=== PATIENT | female | born 2000 | race Hispanic/Latino ===

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

== ENCOUNTER 2019-02-25 14:49 | Emergency (ER) | payer MEDICARE, OTHER ==
[~2019-02-25] VITALS: Ht 160 cm; Wt 55.3 kg
--- OUTSIDE RECORDS SUMMARY | 2019-02-25 14:52 | XMS REPORT ---
Author Author [facility] Address Unknown Phone Unavailable Care Team Providers Care Vehicle And Equipment Cleaner Name Role Phone Unavailable Unavailable Problems This patient has no known problems. Allergies, Adverse Reactions, Alerts This patient has no known allergies or adverse reactions. Medications This patient has no known medications. Encounters Start Date/Time End Date/Time Encounter Type Admission Type Attending Clinicians Care Facility Care Department Encounter ID 2018-03-13 00:00:00 2018-03-14 00:00:00 Outpatient [facility] [id number]
--- NOTE | 2019-02-25 15:39 | NUR ---
DR SALAZAR IN TRIAGE FOR PATIENT EVAL. DR SALAZAR EDUCATED PATIENT THAT NO OB SERVICES AVAILABLE AT [facility] AND PATIENT CAN EITHER BE TRANSFERRED TO [facility] OR SIGN OUT AGAINST MEDICAL ADVICE AND DRIVE TO [facility]. PATIENT VERBALIZED UNDERSTANDING OF RISKS OF LEAVING AGAINST MEDICAL ADVICE AND STATES THAT SHE WANTS TO DRIVE TO [facility]. NO SIGNS OF ACUTE DISTRESS NOTED.
== END 2019-02-25 15:43 | disposition left against medical advice (07) ==
LOC: ER 14:49
DX: O26.92 Pregnancy related conditions, unspecified, second trimester (principal); R10.2 Pelvic and perineal pain; K62.5 Hemorrhage of anus and rectum
CPT/HCPCS: 99282

== ENCOUNTER 2020-03-06 15:49 | Emergency (ER) | payer OTHER ==
[~2020-03-06] VITALS: Ht 160 cm; Wt 55.3 kg
--- OUTSIDE RECORDS SUMMARY | 2020-03-06 15:53 | XMS REPORT | Summary of Care ---
Author Author [facility] - Health Organization [facility] - Health Address Unknown Phone Unavailable Care Team Providers Care Product Development Engineer Name Role Phone Bell Rudolph CNM PCP Encounter Details Care Team Description Date Type Department Doctor Unassigned, [place] [address] [place] [address] 06/05/2019 Orders Only [facility] [address] [place] [address] Allergies Comments Active Allergy Reactions Severity Noted Date Told when a baby was allergic Penicillins Rash 12/04/2018 documented as of this encounter (statuses as of 06/05/2019) Medications End Date Status Medication Sig Dispensed Refills Start Date Active PNV 67-iron ps-folate Take 1 60 capsule 6 01/23 no.1-dha (VITAFOL ULTRA) capsule by 9 29 mg iron- 1 mg-200 mg mouth daily. CapIndications: High-risk in second trimester Active albuterol 90 Inhale 2 8.5 g 0 mcg/actuation inhaler Puffs every 6 9 (six) hours as needed for Wheezing or Shortness of Breath. Active doxylamine-pyridoxine, Take 2 60 tablet 1 vit B6, (DICLEGIS) 10-10 tablets by 9 mg per tabletIndications: mouth at Nausea bedtime. 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 Prob recurren t by hx. Initial outbreak in 2018 Rubella non-immune status, antepartum 01/01/2019 Overview: PP MMR Allergy to penicillin 12/05/2018 Asthma affecting , antepartum 12/04/2018 High-risk in third trimester 12/04/2018 Estimated Date of Delivery Comments Yes 07/06/2019 Based on Ultrasound documented as of this encounter (statuses as of 06/05/2019) Resolved Problems Problem Noted Date Resolved Date Need for Tdap vaccination 04/16/2019 05/20/2019 Cough 01/01/2019 02/04/2019 Gastroenteritis 12/22/2018 02/04/2019 Exposure to benzene 12/22/2018 04/16/2019 Primigravida in first trimester 12/05/20182018 Bacterial vaginosis 12/05/2018 03/04/2019 Overview: + BV noted on swab Patient asymptomatic Will defer treatment Nausea and vomiting in 12/04/201804/16 Need for prophylactic vaccination and inoculation aga inst influenza 12/04/2018 02/04/2019 documented as of this encounter (statuses as of 06/05/2019) Immunizations Name Administration Dates Next Due Influenza Virus Vaccine 12/04/2018 Quad .5 mL IM 6+ MO TDAP (ADACEL) VACCINE 05/03/2019 documented as of this encounter Social History Date Tobacco Use Types Packs/Day Years Used Never Smoker Smokeless Tobacco: Never Used Drinks/Week oz/Week Comments Alcohol Use stopped in September Yes Estimated Date of Delivery Comments Yes 07/06/2019 Based on Ultrasound Sex Assigned at Date Recorded Not on file Industry Job Start Date Occupation Not on file Not on file Not on file Travel End Travel History Travel Start No recent travel history available. documented as of this encounter Last Filed Vital Signs Not on filedocumented in this encounter Plan of Treatment Health Maintenance Due Date Last Done Comments MENINGOCOCCAL B VACCINES 11/25/2009 (1 of 2 - Risk Bexsero 2-dose series) HPV VACCINES (1 - Female 11/25/2014 3-dose series) INFLUENZA VACCINE (#1) 2019 12/04/2018 CHLAMYDIA SCREENING 12/05/2019 12/04/2018 DTaP,Tdap,and Td Vaccines 05/03/2029 05/03/2019 (2 - Td) MENINGOCOCCAL VACCINE Aged Out No longer eligib le based on patient's age to complete this topic PNEUMOCOCCAL 0-64 YEARS Aged Out No longer elig ible based COMBINED SERIES on patient's age to complete this topic documented as of this encounter Procedures Comments Procedure Name Priority Date/Time Associated Diag nosis NO SHOW OR MISSED Routine 06/05/2019 APPOINTMENT POLICY 4:05 PM CDT ACKNOWLEDGEMENT documented in this encounter Results Not on filedocumented in this encounter Insurance Type Payer Benefit Subscriber ID Effective Phone Address Plan / Dates Group Medicaid [employer] PLAN - SUPERIOR-( xxxxxxxxx 2018-P [place] , [place] [id number] [facility]) PLAN documented as of this encounter
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
--- OUTSIDE RECORDS SUMMARY | 2020-03-06 15:53 | XMS REPORT | Summary of Care ---
Author Author [facility] - [facility] Organization [facility] - Health Address Unknown Phone Unavailable Care Team Providers Care Supervisor [employer] Name Role Phone Bell RudolphM PCP Reason for Visit * Reason Comments Care Encounter Details Care Team Description Date Type Department Bell Rudolph CNM [address] [place] [address] High-risk in third trimester ( Primary Dx); Herpes simplex vulvovaginitis 05/20/2019 Routine [facility] Visit [facility] [address] [place] [address] Allergies Comments Active Allergy Reactions Severity Noted Date Told when a baby was allergic Penicillins Rash 12/04/2018 documented as of this encounter (statuses as of 05/22/2019) Medications End Date Status Medication Sig Dispensed [...] as of this encounter (statuses as of 05/22/2019) Active Problems Problem Noted Date Nausea 05/03/2019 [...] as of this encounter (statuses as of 05/22/2019) Resolved Problems Problem Noted Date Resolved Date [...] as of this encounter (statuses as of 05/22/2019) Immunizations Name Administration Dates Next Due Influenza [...] Signs Reading Time Taken Comments Vital Sign 106/63 05/20/2019 5:16 PM CDT Blood Pressure 94 05/20/2019 5:16 PM CDT Pulse 36.4 C (97.6 F) 05/20/2019 5:16 PM CDT Temperature 20 05/20/2019 5:16 PM CDT Respiratory Rate - - Oxygen Saturation - - Inhaled Oxygen Concentration 68.5 kg (151 lb) 05/20/2019 5:16 PM CDT Weight 157.5 cm (5' 2") 05/20/2019 5:16 PM CDT Height 27.62 05/20/2019 5:16 PM CDT Body Mass Index documented in this encounter Progress Notes * Bell Rudolph CNM - 05/20/2019 5:15 PM CDT Chief complaint: Chief Complaint Patient presents with Care CC: Follow Up Visit Yulisa Garcia is a 18 year old, , /White female. Patient's last menstrual period was 10/07/2018. She is 33w4d with an intrauterine pregna ncy. Her estimated [...] file Gets together: Not on file Attends restoration service: Not on file Active member of [...] Labs are pending. and Routine Visit on 05/03/2019 Component Date Value POCT PH U 05/03/2019 7 POCT U LEUK EST 05/03/2019 2 POCT U NIT 05/03/2019 n POCT U PROT 05/03/2019 tr POCT U GLU 05/03/2019 n POCT U KETONE 05/03/2019 n POCT U BLD 05/03/2019 1 Radiology No new radiology. Allergies Yulisa is allergic to pcn [penicillins]. Medications Yulisa has a current medication list which includes the following prescriptio n(s): doxylamine-pyridoxine (vit b6), albuterol, and pnv 67-iron ps-folate no.1- dha. Review of Systems BP 106/63 | Pulse 94 | Temp 36.4 C (97.6 F) (Oral) | Resp 20 | Ht 5' 2" (1.575 m) | Wt 151 lb (68.5 kg) | LMP 10/07/2018 | BMI 27.62 kg/m Pregravid BMI: 21.8 Physical Exam Assessment/Plan High-risk in third trimester (primary encounter diagnosis) Comment: Plan: HIV 1/2 AG-AB WITH REFLEX, [facility] ONLY - SYPHILIS IGG/IGM, CBC WITH DIFF, CBC WITH DIFFERENTIAL, HIV 1/2 AG-AB WITH REFLEX, [facility] ONLY - SYPHILIS IGG/IGM Herpes simplex vulvovaginitis Comment: No new outbreak Plan: start suppression next visit Return to clinic in 2 weeks. at 33w4d This visit did not involve counseling and coordination that comprised more than 50% of the visit time. documented in this encounter Plan of Treatment Care Team Description Date Type Specialty Bell Rudolph, CNM [address] [id number] [phone] 06/05/2019 Routine [facility] Visit Health Maintenance Due Date Last Done Comments [...] Procedure Name Priority Date/Time Associated Diag nosis [facility] ONLY - SYPHILIS Routine 05/20/2019 High-risk in IGG/IGM 6:33 PM CDT third trimester HIV 1/2 AG-AB WITH REFLEX Routine 05/20/2019 High -risk in 6:33 PM CDT third trimester CBC WITH DIFFERENTIAL Routine 05/20/2019 High-ris k in 6:33 PM CDT third trimester CBC WITH DIFF Routine 05/20/2019 High-risk pregn joseph in 6:33 PM CDT third trimester documented in this encounter Results * CBC WITH DIFFERENTIAL (05/20/2019 6:33 PM CDT) WBC 9.18 4.30 - 11.10 [facility] 10*3/L [facility] RBC 3.97 3.93 - 5.25 10*6/L [facility] HGB 12.0 11.6 - 15.0 g/dL [facility] HCT 36.3 35.7 - 45.2 % [facility] MCV 91.4 80.6 - 95.5 fL [facility] MCH 30.2 25.9 - 32.8 pg [facility] MCHC 33.1 31.6 - 35.1 g/dL [facility] RDW-SD 40.7 39.0 - 49.9 fL [facility] RDW-CV 12.2 12.0 - 15.5 % [facility] PLT 249 166 - 358 10*3/L [facility] MPV 10.4 9.5 - 12.9 fL [facility] IPF % 5.2Comment: Platelet count 1.3 - 7.7 % U[facility] B [facility] measured by fluorescence SERVICES method. NRBC/100 WBC 0.0 0.0 - 10.0 /100 WBCs [facility] NRBC x10^3 <0.01 10*3/L [facility] GRAN MAT (NEUT) 71.8 % [facility] % SERVICES IMM GRAN % 1.10 % [facility] LYMPH % 17.5 % [facility] MONO % 7.4 % [facility] EOS % 2.0 % [facility] BASO % 0.2 % [facility] GRAN MAT 6.59 1.88 - 7.09 10*3/uL [facility] x10^3(ANC) SERVICES IMM GRAN x10^3 0.10 (H) 0.00 - 0.06 10*3/uL [facility] LYMPH x10^3 1.61 1.32 - 3.29 10*3/uL [facility] MONO x10^3 0.68 0.33 - 0.92 10*3/uL [facility] EOS x10^3 0.18 0.03 - 0.39 10*3/uL [facility] BASO x10^3 <0.03 0.01 - 0.07 10*3/uL [facility] Specimen Blood - ARM, LEFT Performing Organization Address City/State/Zipcode Ph one Number [facility] CLIA: [id number], [address] [place] [address] [facility] * [facility] ONLY - SYPHILIS IGG/IGM (05/20/2019 6:33 PM CDT) Syphilis Non-reactive Non-reactive [facility] IgG/IgM SERVICES Specimen Blood - ARM, LEFT Narrative Performed At Non-reactive - No serologic evidence of T. pallidum i nfection. Cannot exclude [facility] incubating or early syphilis. Submit a second specimen in 2-4 weeks if syphilis SERVICES is clinically suspected. Equivocal - Further testing to follow. Reactive - Further testing to follow. Performing Organization Address City/State/[facility] Ph one Number [facility] CLIA: [id number], [address] [place] [address] [facility] * HIV 1/2 AG-AB WITH REFLEX (05/20/2019 6:33 PM CDT) HIV 1/2 Ag-Ab Negative Negative [facility] with Reflex SERVICES HIV 0.07 [facility] Semi-quantitati SERVICES ve Specimen Blood - ARM, LEFT Narrative Performed At Non-reactive for HIV-1 antigen and HIV-1/HIV-2 antibo dies.No laboratory [facility] evidence of HIV infection.Repeat in 2-4 weeks if acute HIV infection is SERVICES suspected. Performing Organization Address [facility] Ph one Number [facility] CLIA: [id number], [address] [place] [id number] [facility] documented in this encounter Visit Diagnoses Diagnosis High-risk in third trimester - Primary Herpes simplex vulvovaginitis documented in this encounter Insurance Type Payer Benefit Subscriber ID Effective Phone Address Plan / Dates Group Medicaid [employer] - SUPERIOR-( xxxxxxxxx 2018-P [place] [employer] [place] , [place] [id number] [facility]) PLAN documented as of this encounter
--- OUTSIDE RECORDS SUMMARY | 2020-03-06 15:53 | XMS REPORT | Continuity of Care Document ---
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 Role Phone [employer] Unavailable Un available Problems Problem Status Onset Date Classification Date Reported Comments Source PAIN WITH URINATION Active 07/13/2019 [facility] Nausea Active 05/03/2019 06/12/2019 [facility] Rubella non-immune status, antepartum Active 01/01/2019 06/12/2019 [facility] Allergy to penicillin Active 12/05/2018 06/12/2019 [facility] Asthma affecting , antepartum Active 12/04/2018 06/12/2019 [facility] Patient currently (finding) Resolved 09/29/2018 Problem 07/18/2019 [facility] High-risk in third trimester Active 06/12/2019 [facility] Herpes simplex vulvovaginitis Active 06/12/2019 [facility] Need for Tdap vaccination Acti ve 05/03/2019 [facility] Asthma (disorder) Resolved Problem 07/18/2019 [facility] Herpes simplex (disorder) Acti ve Problem Automatically added by Discern Expert ernesto morrison result @EVENTCDDISP:1 of @RESULT:1 on @EVENTENDDTTM:1. [facility] Herpes simplex type 2 infection (disorder) Resolved Problem 07/18/2019 [facility] Medications Medication Details Route Status Patient Instructions Ordering Provider Order Date Source Docusate Sodium 100 MG Oral Capsule 100 mg = 1 cap, PO, BID, PRN Constipation, # 60 cap, 1 Refill(s), Pharmacy: [facility]/pharmacy #[id number] Active 07/16/2019 [facility] ibuprofen 600 mg oral tablet 6 00 mg = 1 tab, PO, Q6H, # 30 tab, 0 Refill(s), Pharmacy: [facility][id number] Active 07/16/2019 [facility] CitraNatal [place] oral capsule 1 cap, PO, Daily, # 60 cap, 0 Refill(s), Pharmacy: [facility]/pharmacy #[id number] Active 07/16/2019 [facility] Multivitamins oral tablet 1 tab, Route: PO, Drug Form: TAB, Dosing Weight 71.818, kg, Daily, Start date: 07/15/19 9:00:00 CDT, Duration: 30 day, Stop date: 08/13/19 9:00:00 STORE 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 No Longer Active 07/14/2019 [facility] Oxytocin 30 unit, 500 mL, Rate : 42 ml/hr, Infuse over: 11.9 hr, Dosing Weight 71.818, kg, Route: IV, Total Volume: 500 mL, Start date: 07/14/19 10:23:00 CDT, Duration: 2 day, Stop date: 07/16/19 10:22:00 CDT, Replace Every: 11.9 hr, 0 No Longer Active 07/14/2019 [facility] Lactated Ringers IV 1,000 mL 1 ,000 mL, Rate: 100 ml/hr, Infuse over: 10 hr, Route: IV, Dosing Weight 71.818 kg, Total Volume: 1,000, Start date: 07/14/19 10:23:00 CDT, Duration: 30 day, Stop date: 08/13/19 10:22:00 STORE ADMINISTRATOR, 1.8, m2, 0 No Longer Active 07/14/2019 [facility] Ondansetron Notes: (Same as: Fady carracso) MEDICATION WASTE Product Size: 4 mg Product Wasted: ___ mg No Longer Active 07/14/2019 [facility] Docusate Notes: (Same as: Cola ce) (Do Not Crush) No Longer Active 07/14/2019 [facility] Bisacodyl Notes: (Same As: Dul colax, Correctol) (Do Not Crush) "Do Not Crush" No Longer Active 07/14/2019 [facility] lanolin topical 1 appl, Route: TOP, PRN, Drug form: OINT, PRN Other -See Comment, Start date: 07/14/19 10:23:00 CDT, Duration: 30 day, Stop date: 08/13/19 9:22:00 STORE ADMINISTRATOR, 0 No Longer Active 07/14/2019 [facility] zolpidem Notes: (Same As: Ambi en) No Longer Active 07/14/2019 [facility] Dermoplast 20% topical spray N otes: (Same As: Dermoplast) WASTE: Aerosol - Return to Pharmacy FOR EXTERNAL USE ONLY No Longer Active 07/14/2019 [facility] Methylergonovine Notes: (Same as:Methergine) No Longer Active 07/14/2019 [facility] Famotidine Notes: (Same as: Pe pcid) Can be dilute in 5- 10cc NS IVP: Slow IV push over at least 2 minutes. No Longer Active 07/14/2019 [facility] Misoprostol Notes: (Same as:Cy totec) Take with food No Longer Active 07/14/2019 [facility] Methylergonovine Notes: (Same as:Methergine) No Longer Active 07/14/2019 [facility] Citric Acid / sodium citrate N otes: (Same As: Bicitra, Cytra-2) Sodium citrate-citric acid (500-334 mg/5 mL): 1 mL contains sodium 1 mEq/mL and bicarbonate 1 mEq/mL No Longer Active 07/14/2019 [facility] Carboprost Notes: (Same As: He mabate) No Longer Active 07/14/2019 [facility] Tranexamic Acid Notes: (Same A s: Cyklokapron) No Longer Active 07/14/2019 [facility] Oxytocin 30 unit, 500 mL, Rate : Titrate, Dosing Weight 71.818, kg, Route: IV, Total Volume: 500 mL, Start date: 07/13/19 18:36:00 CDT, Duration: 2 day, Stop date: 07/15/19 18:35:00 CDT, Replace Every: 24 hr, 0 No Longer Active 07/13/2019 [facility] Lidocaine Hydrochloride 10 MG/ML Injectable Solution Notes: Preservative free. (Same as: Xylocaine MPF) No Longer Active 07/13/2019 [facility] Calcium Chloride 0.0014 MEQ/ML / Potassi um Chloride 0.004 MEQ/ML / Sodium Chloride 0.103 MEQ/ML / Sodium Lactate 0.028 MEQ/ML Injectable Solution 1,000 mL, 1,000 ml/hr, Infuse Over: 1 hr , Route: IV, 1,000, Drug form: INJ, ONCE, Dosing Weight 71.818 kg, Start date: 07/13/19 18:34:00 CDT, Stop date: 07/13/19 18:34:00 CDT, Bolus for regional anesthesia per unit routine, 0 Inactive 07/13/2019 [facility] Lactated Ringers IV 1,000 mL 1 ,000 mL, Rate: 125 ml/hr, Infuse over: 8 hr, Route: IV, Dosing Weight 71.818 kg, Total Volume: 1,000, Start date: 07/13/19 18:34:00 CDT, Duration: 30 day, Stop date: 08/12/19 18:33:00 STORE ADMINISTRATOR, 1.8, m2, 0 No Longer Active 07/13/2019 [facility] Oxytocin 30 unit, 500 mL, Rate : 42 ml/hr, Infuse over: 11.9 hr, Dosing Weight 71.818, kg, Route: IV, Total Volume: 500 mL, Start date: 07/13/19 18:34:00 CDT, Duration: 2 day, Stop date: 07/15/19 18:33:00 CDT, Replace Every: 11.9 hr, 0 No Longer Active 07/13/2019 [facility] Butorphanol Notes: (Same As: S tadol) MEDICATION WASTE Product Size: 2 mg Product Wasted: ___ mg No Longer Active 07/13/2019 [facility] Ibuprofen Notes: (Same as: Mot rin) "Do Not Crush" Take with food. No Longer Active 07/13/2019 [facility] Acetaminophen 325 MG / Hydrocodone Earl trate 5 MG Oral Tablet Notes: (Same as: [place] 325/5) Do not ex ceed 4gm/day of acetaminophen. No Longer Active 07/13/2019 [facility] Ondansetron Notes: (Same as: Fady carrasco) MEDICATION WASTE Product Size: 4 mg Product Wasted: ___ mg No Longer Active 07/13/2019 [facility] Terbutaline Notes: DO NOT US E IN BOTTOM POLISHER AREA (Same As: Brethine) No Longer Active 07/13/2019 [facility] acyclovir 400 mg tablet Take 1 tablet by mouth 2 (two) times daily. For duration of Oral Active 06/05/2019 [facility] doxylamine-pyridoxine, vit B6, (DICLEGIS ) 10-10 mg per tablet Take 2 tablets by mouth at bedtime. Oral Active 05/03/2019 [facility] albuterol 90 mcg/actuation inhaler Inhale 2 Puffs every 6 (six) hours as needed for Wheezing or Shortness of Breath. Inhalation Active 04/16/2019 [facility] PNV 67-iron ps-folate no.1-dha (VITAFOL ULTRA) 29 mg iron- 1 mg-200 mg Cap Take 1 capsule by mouth daily. Oral Active 02/04/2019 [facility] Allergies, Adverse Reactions, Alerts Substance Category Reaction Severity Reaction type Status Date Reported Comments Source Penicillins Rash Propensity to adverse reacti ons Active 12/04/2018 [facility] penicillins Assertion Drug allergy Active [facility] Immunizations Immunization Date Given Site Status Last Updated Comments Source influenza virus vaccine, inactivated 07/16/2019 Right deltoid completed Pram[facility] TDAP (ADACEL) VACCINE 05/03/20 19 completed C roger [facility] Health Influenza Virus Vaccine Quad .5 mL IM 6+ MO 12/04/2018 completed Viancos [facility] Results Order Name Results Value Reference Range Date Interpretation Comments Source HEMATOLOGY Hgb 10.5 12.0 - 16.0 07/15/2019 [facility] HEMATOLOGY Hct 30.4 36.0 - 48.0 07/15/2019 [facility] DRUG SCREEN U Amph Scr Nega tive *NA* (07/13/19 7:49 PM) Negative 07/14/2019 [facility] DRUG SCREEN U Kaycee Scr Nega tive *NA* (07/13/19 7:49 PM) Negative 07/14/2019 [facility] DRUG SCREEN U Benzodiaz Scr Nega tive *NA* (07/13/19 7:49 PM) Negative 07/14/2019 [facility] DRUG SCREEN U Cocaine Scr Nega tive *NA* (07/13/19 7:49 PM) Negative 07/14/2019 [facility] DRUG SCREEN U Cannab Scr Nega tive *NA* (07/13/19 7:49 PM) Negative 07/14/2019 [facility] DRUG SCREEN U Opiate Scr Nega tive *NA* (07/13/19 7:49 PM) Negative 07/14/2019 [facility] DRUG SCREEN U Phencyclidine Scr Nega tive *NA* (07/13/19 7:49 PM) Negative 07/14/2019 [facility] DRUG SCREEN UDS Note See Note (07/13/19 7:49 PM) 07/14/2019 [facility] DRUG SCREEN U Methadone Scr Nega tive *NA* (07/13/19 7:49 PM) Negative 07/14/2019 [facility] DRUG SCREEN U Propoxyph Scr Nega tive *NA* (07/13/19 7:49 PM) Negative 07/14/2019 [facility] URINE AND STOOL UA Color Light Yellow *NA* (07/13/19 7:49 PM) Yellow 07/14/2019 [facility] URINE AND STOOL UA Turbidity Clear (07/13/19 7:49 PM) Clear 07/14/2019 [facility] URINE AND STOOL UA Spec Grav 1.014 <=1.030 07/14/2019 [facility] URINE AND STOOL UA pH 6.0 5.0 - 8.0 07/14/2019 [facility] URINE AND STOOL UA Protein Negative mg/dL Negative mg/dL 07/14/2019 [facility] URINE AND STOOL UA Glucose Negative mg/dL Negative mg/dL 07/14/2019 [facility] URINE AND STOOL UA Ketones 20 mg/dL Negative mg/dL 07/14/2019 [facility] URINE AND STOOL UA Bili Negative *NA* (07/13/19 7:49 PM) Negative 07/14/2019 [facility] URINE AND STOOL UA Blood Large *ABN* (07/13/19 7:49 PM) Negative 07/14/2019 [facility] URINE AND STOOL UA Urobilinogen <1.0 0.1 - 1.0 07/14/2019 [facility] URINE AND STOOL UA Nitrite Negative (07/13/19 7:49 PM) Negative 07/14/2019 [facility] URINE AND STOOL UA Leuk Est Small *ABN* (07/13/19 7:49 PM) Negative 07/14/2019 [facility] URINE AND STOOL UA Sq Epi Few /LPF Few /LPF 07/14/2019 [facility] URINE AND STOOL UA WBC 10 0 - 5 07/14/2019 [facility] URINE AND STOOL UA RBC 6 0 - 2 07/14/2019 [facility] URINE AND STOOL UA Bacteria Occasional /HPF None Seen /HPF 07/14/2019 [facility] URINE AND STOOL UA Mucus Few /LPF None Seen /LPF 07/14/2019 [facility] BLOOD BANK RESULTS ABO/Rh O POS 07/14/2019 [facility] BLOOD BANK RESULTS Antibody Scrn Negative (07/13/19 7:44 PM) 07/14/2019 [facility] HEMATOLOGY WBC 11.3 3.7 - 10.4 07/14/2019 [facility] HEMATOLOGY RBC 3.92 4.20 - 5.40 07/14/2019 [facility] HEMATOLOGY Hgb 11.7 12.0 - 16.0 07/14/2019 [facility] HEMATOLOGY Hct 34.8 36.0 - 48.0 07/14/2019 [facility] HEMATOLOGY MCV 88.6 80.0 - 98.0 07/14/2019 [facility] HEMATOLOGY MCH 29.9 27.0 - 31.0 07/14/2019 [facility] HEMATOLOGY MCHC 33.7 32.0 - 36.0 07/14/2019 [facility] HEMATOLOGY RDW 13.3 11.5 - 14.5 07/14/2019 [facility] HEMATOLOGY Platelet 245 133 - 450 07/14/2019 [facility] HEMATOLOGY MPV 8.1 7.4 - 10.4 07/14/2019 [facility] HEMATOLOGY Segs 75.9 45.0 - 75.0 07/14/2019 [facility] HEMATOLOGY Lymphocytes 16.2 20.0 - 40.0 07/14/2019 [facility] HEMATOLOGY Monocytes 6.6 2.0 - 12.0 07/14/2019 [facility] HEMATOLOGY Eosinophils 1.1 0.0 - 4.0 07/14/2019 [facility] HEMATOLOGY Basophils 0.2 0.0 - 1.0 07/14/2019 [facility] HEMATOLOGY Neutrophils # 8.6 1.5 - 8.1 07/14/2019 [facility] HEMATOLOGY Lymphocytes # 1.8 1.0 - 5.5 07/14/2019 [facility] HEMATOLOGY Monocytes # 0.7 0.0 - 0.8 07/14/2019 [facility] HEMATOLOGY Eosinophils # 0.1 0.0 - 0.5 07/14/2019 [facility] IMMUNOLOGY Treponemal Ab Non-R eactive *NA* (07/13/19 7:44 PM) Non 07/14/2019 [facility] IMMUNOLOGY Hep Bs Ag Negat rex *NA* (07/13/19 7:44 PM) Negative 07/14/2019 [facility] IMMUNOLOGY HIV. Negat rex *NA* (07/13/19 7:44 PM) Negative 07/14/2019 [facility] GROUP B STREPTOCOCCUS BY PCR < td ID="[id number]">Group B Streptococcus by PCR</td><td>Negative</td><td>Negative</td><td>[facility]</td><td ID="[id number]"/> Negative Negative 06/07/2019 [facility] GROUP B STREPTOCOCCUS BY PCR Lab Int erpretation Normal 06/07/2019 [facility] Healt GC & CHLAMYDIA AMPLIFIED ASSAY Lab I nterpretation Normal 06/06/2019 [facility] GALV ONLY - SYPHILIS IGG/IGM < td ID="[id number]">Syphilis IgG/IgM</td><td>Non-reactive</td><td>Non-reactive</td><td>[facility]</td><td ID="[id number]"/> Non-reactive Non 05/21/2019 [facility] GALV ONLY - SYPHILIS IGG/IGM < p>Non-reactive - No serologic evidence of T. pallidum infection. Cannot exclude incubating or early syphilis. Submit a second specimen in 2-4 weeks if syphilis is clinically suspected.</p><p>Equivocal - Further testing to follow.</p><p>Reactive - Further testing to follow. </p> Non-reactive - No serologic evidence of T. pallidum infection. Cannot exclude incubating or early syphilis. Submit a second specimen in 2-4 weeks if syphilis is clinically suspected.Equivocal - Further testing to follow.Reactive - Further testing to follow. 05/21/2019 [facility] GALV ONLY - SYPHILIS IGG/IGM Lab Int erpretation Normal 05/21/2019 [facility] Healt h HIV 1/2 AG-AB WITH REFLEX <td ID="[id number]">HIV 1/2 Ag-Ab with Reflex</td><td>Negative</td><td>Negative</td><td>[facility]</td><td ID="[id number]"/> Negative Negative 05/21/2019 [facility] HIV 1/2 AG-AB WITH REFLEX <td ID="[id number]">HIV Semi- quantitative</td><td>0.07</td><td/><td>[facility]</td><td ID="[id number]"/> 0.07 05/21/2019 [facility] HIV 1/2 AG-AB WITH REFLEX <p>N on-reactive for HIV-1 antigen and HIV-1/HIV-2 antibodies.No laboratory evidence of HIV infection.Repeat in 2-4 weeks if acute HIV infection is suspected.</p> Non- reactive for HIV-1 antigen and HIV-1/HIV-2 antibodies.No laboratory evidence of HIV infection.Repeat in 2-4 weeks if acute HIV infection is suspected. 05/21/2019 [facility] CBC WITH DIFFERENTIAL <td ID="[id number]">WBC</td><td>9.18</td><td>4.30 - 11.10 10*3/L</td><td>[facility]</td><td ID="[id number]"/> 9.18 4.30 - 11.17157 05/21/2019 [facility] CBC WITH DIFFERENTIAL <td ID="[id number]">RBC</td><td>3.97</td><td>3.93 - 5.25 10*6/L</td>< td>[facility]</td><td ID="[id number]"/> 3.97 3.93 - 5.15636 05/21/2019 [facility] CBC WITH DIFFERENTIAL <td ID="[id number]">HGB</td><td>12.0</td><td>11.6 - 15.0 g/dL</td><td>[facility]</td><td ID="[id number]"/> 12.0 11.6 - 15 05/21/2019 [facility] CBC WITH DIFFERENTIAL <td ID="[id number]">HCT</td><td>36.3</td><td>35.7 - 45.2 %</td><td>[facility]</td><td ID="[id number]"/> 36.3 35.7 - 45.2 05/21/2019 [facility] CBC WITH DIFFERENTIAL <td ID="[id number]">MCV</td><td>91.4</td><td>80.6 - 95.5 fL</td><td>[facility]</td><td ID="[id number]"/> 91.4 80.6 - 95.5 05/21/2019 [facility] CBC WITH DIFFERENTIAL <td ID="[id number]">MCH</td><td>30.2</td><td>25.9 - 32.8 pg</td><td>[facility]</td><td ID="[id number]"/> 30.2 25.9 - 32.8 05/21/2019 [facility] CBC WITH DIFFERENTIAL <td ID="[id number]">MCHC</td><td>33.1</td><td>31.6 - 35.1 g/dL</td><td>[facility]</td><td ID="[id number]"/> 33.1 31.6 - 35.1 05/21/2019 [facility] CBC WITH DIFFERENTIAL <td ID="[id number]">RDW-SD</td><td>40.7</td><td>39.0 - 49.9 fL</td><td>[facility]</td><td ID="[id number]"/> 40.7 39 - 49.9 05/21/2019 [facility] CBC WITH DIFFERENTIAL <td ID="[id number]">RDW-CV</td><td>12.2</td><td>12.0 - 15.5 %</td><td>[facility]</td><td ID="[id number]"/> 12.2 12 - 15.5 05/21/2019 [facility] CBC WITH DIFFERENTIAL <td ID="[id number]">PLT</td><td>249</td><td>166 - 358 10*3/L</td><td >[facility]</td><td ID="[id number]"/> 249 166 - [id number] 05/21/2019 [facility] CBC WITH DIFFERENTIAL <td ID="[id number]">MPV</td><td>10.4</td><td>9.5 - 12.9 fL</td><td>[facility]</td><td ID="[id number]"/> 10.4 9.5 - 12.9 05/21/2019 [facility] CBC WITH DIFFERENTIAL IPF % 5. 2 1.3 - 7.7 05/21/2019 Platelet count measured by fluorescence method. [facility] CBC WITH DIFFERENTIAL NRBC/100 WBC 0.0 0.0 - 10.0100 05/21/2019 [facility] CBC WITH DIFFERENTIAL NRBC x10^3 <0.01 10*3/L 05/21/2019 [facility] CBC WITH DIFFERENTIAL <td ID="[id number]">GRAN MAT (NEUT) %</td><td>71.8</td><td>%</td><td>[facility]</td><td ID="[id number]"/> 71.8 05/21/2019 [facility] CBC WITH DIFFERENTIAL IMM GRAN % 1.10 05/21/2019 [facility] CBC WITH DIFFERENTIAL <td ID="[id number]">LYMPH %</td><td>17.5</td><td>%</td><td>[facility]</td><td ID="[id number]"/> 17.5 05/21/2019 [facility] CBC WITH DIFFERENTIAL <td ID="[id number]">MONO %</td><td>7.4</td><td>%</td><td>[facility]</td><td ID="[id number]"/> 7.4 05/21/2019 [facility] CBC WITH DIFFERENTIAL <td ID="[id number]">EOS %</td><td>2.0</td><td>%</td><td>[facility]</td><td ID="[id number]"/> 2.0 05/21/2019 [facility] CBC WITH DIFFERENTIAL <td ID="[id number]">BASO %</td><td>0.2</td><td>%</td><td>[facility]</td><td ID="[id number]"/> 0.2 05/21/2019 [facility] CBC WITH DIFFERENTIAL GRAN MAT x10^3 (ANC) 6.59 1.88 - 7.09 05/21/2019 [facility] Healt h CBC WITH DIFFERENTIAL IMM GRAN x10^3 0.10 0 - 0.06 05/21/2019 [facility] CBC WITH DIFFERENTIAL <td ID="[id number]">LYMPH x10^3</td><td>1.61</td><td>1.32 - 3.29 10*3/uL</td><td>[facility]</td><td ID="[id number]"/> 1.61 1.32 - 3.29 05/21/2019 [facility] CBC WITH DIFFERENTIAL <td ID="[id number]">MONO x10^3</td><td>0.68</td><td>0.33 - 0.92 10*3/uL</td><td>[facility]</td><td ID="[id number]"/> 0.68 0.33 - 0.92 05/21/2019 [facility] CBC WITH DIFFERENTIAL <td ID="[id number]">EOS x10^3</td><td>0.18</td><td>0.03 - 0.39 10*3/uL</td><td>[facility]</td><td ID="[id number]"/> 0.18 0.03 - 0.39 05/21/2019 [facility] CBC WITH DIFFERENTIAL <td ID="[id number]">BASO x10^3</td><td><0.03</td><td>0.01 - 0.07 10*3/uL</td><td>[facility]</td><td ID="[id number]"/> <0.03 0.01 - 0.07 05/21/2019 [facility] CBC WITH DIFFERENTIAL Lab Interpreta tion Abnormal 05/21/2019 [facility] Health POCT URINALYSIS W/O SPECIFIC GRAVITY POCT PH U 7 5 - 8 05/03/2019 [facility] Healt h POCT URINALYSIS W/O SPECIFIC GRAVITY POCT U LEUK EST 2 Negative 05/03/2019 [facility] POCT URINALYSIS W/O SPECIFIC GRAVITY POCT U NIT n Negative 05/03/2019 [facility] POCT URINALYSIS W/O SPECIFIC GRAVITY POCT U PROT tr Negative 05/03/2019 [facility] POCT URINALYSIS W/O SPECIFIC GRAVITY POCT U GLU n Negative 05/03/2019 [facility] POCT URINALYSIS W/O SPECIFIC GRAVITY POCT U KETONE n Negative 05/03/2019 [facility] POCT URINALYSIS W/O SPECIFIC GRAVITY POCT U BLD 1 Negative 05/03/2019 [facility] Pathology Reports No Data Provided for This Section Diagnostic Reports No Data Provided for This Section Consultation Notes No Data Provided for This Section Discharge Summaries No Data Provided for This Section History and Physicals No Data Provided for This Section Vital Signs Vital Sign Value Date Comments Source Temperature Oral (F) 97.7 F 07/16/2019 [facility] Heart Rate 71 07/16/2019 [facility] Respitory Rate 18 07/16/2019 [facility] Systolic (mm Hg) 103 07/16/2019 [facility] Diastolic (mm Hg) 62 07/16/2019 [facility] Temperature Oral (F) 97.9 F 07/16/2019 [facility] Heart Rate 80 07/16/2019 [facility] Respitory Rate 18 07/16/2019 [facility] Systolic (mm Hg) 111 07/16/2019 [facility] Diastolic (mm Hg) 69 07/16/2019 [facility] Temperature Oral (F) 98.4 F 07/15/2019 [facility] Heart Rate 80 07/15/2019 [facility] Respitory Rate 18 07/15/2019 [facility] Systolic (mm Hg) 107 07/15/2019 [facility] Diastolic (mm Hg) 68 07/15/2019 [facility] Height 157.48 cm 07/14/2019 [facility] Weight 71.818 07/14/2019 [facility] BMI Calculated 28.96 07/14/2019 [facility] Height 157.48 cm 07/13/2019 [facility] BMI Calculated 28.96 07/13/2019 [facility] Weight 71.818 07/13/2019 [facility] Systolic (mm Hg) 119 06/05/2019 [facility] Diastolic (mm Hg) 78 06/05/2019 [facility] Heart Rate 88 06/05/2019 [facility] Temperature Oral (F) 36.83 Felipa 06/05/2019 [facility] Respitory Rate 20 06/05/2019 [facility] Height 157.5 cm 06/05/2019 [facility] Weight 70.58 06/05/2019 [facility] Systolic (mm Hg) 106 05/20/2019 [facility] Diastolic (mm Hg) 63 05/20/2019 [facility] Heart Rate 94 05/20/2019 [facility] Temperature Oral (F) 36.44 Felipa 05/20/2019 [facility] Respitory Rate 20 05/20/2019 [facility] Height 157.5 cm 05/20/2019 [facility] Weight 68.493 05/20/2019 [facility] Systolic (mm Hg) 97 05/03/2019 [facility] Diastolic (mm Hg) 62 05/03/2019 [facility] Heart Rate 86 05/03/2019 [facility] Temperature Oral (F) 36.06 Felipa 05/03/2019 [facility] Respitory Rate 20 05/03/2019 [facility] Height 157.5 cm 05/03/2019 [facility] Weight 67.586 05/03/2019 [facility] Encounters Location Location Details Encounter Type Encounter Number Reason For Visit Attending Provider ADM Date DC Date Status Source [facility] Routine Visit [id number] Bell YING 05/03/2019 05/03/2019 [facility] Routine Visit [id number] Bell YING 05/20/2019 05/20/2019 [facility] Orders Only [id number] No Doctor Unassigned 06/05/2019 [facility] Routine Visit [id number] Bell Rudolph CNM 06/05/2019 06/05/2019 [facility] Inpatient [id number] Bridgett Peterson 07/13/2019 07/16/2019 [facility] Procedures Procedure Code Date Perfomer Comments Source GC & CHLAMYDIA AMPLIFIED ASSAY [id number] 06/06/2019 [facility] GROUP B STREPTOCOCCUS BY PCR 8 7653 06/06/2019 [facility] NO SHOW OR MISSED APPOINTMENT POLICY ACKNOWLEDGEMENT 50901 06/06/2019 Doctor Unassigned [facility] CBC WITH DIFF 08996 05/21/2019 [facility] CBC WITH DIFFERENTIAL 00915 05/21/2019 [facility] HIV 1/2 AG-AB WITH REFLEX 70895 05/21/2019 [facility] GALV ONLY - SYPHILIS IGG/IGM 8 6780 05/21/2019 [facility] TDAP (ADACEL) IMMUNIZATION 907 15 05/03/2019 [facility] POCT URINALYSIS W/O SPECIFIC GRAVITY 05373 05/03/2019 [facility] Assessment and Plan Assessment and Plan Date Source Extracted from:Title: Progres s Note Author: Grant German MD Date: 07/16/19 [employer]1 [employer] Progress Note S: Pt is feeling well this morning, no complaints. Pain controlled. Tolerating regular diet, voiding, passing flatus. O: Vitals Tmp(F) Pulse BP RR SpO2 FIO2 07/16 00:02 97.9 80 111/69 1 8 --- --- 07/15 16:00 98.4 80 107/68 1 8 --- --- 07/15 08:00 98.2 85 106/69 1 8 --- --- 07/15 00:10 98.6 80 108/66 1 8 --- --- 07/14 16:00 98.2 102 109/68 18 --- --- 24 Hr Tmax: 98.4F (36.89c) at 07/15 16:0 0 Vital Signs are the last 5 in the past 48 hours. Gen: NAD CV: RR Resp: normal effort Abd: soft/ fundus firm at umbilicus/ nontender/ nondistended : lochia scant Ext: no c/c/e Labs: Hb 10.5 Rh pos Rub imm HepBSag neg HIV neg Trep neg A/P:18 yo with h/o HSV2+, asthma PPD#2 s/p TSVD, doing well 1. PPD#2 - AFVSS - Hb 11.7 > EBL 500 cc + cytotec 1000, M ethergine x1 > 10.5. No s/sx of anemia. - GI: tolerating regular diet - : voiding without difficulty - Pain: controlled with current medicati ons 2. care - Rh pos, Rub Imm - - BCM: depo 3. Asthma - stable on PRN Albuterol not used in mo nths - no hx of intubation or hospitalization 4. HSV + - first and only outbreak in February - on Valtrex suppression from 36 weeks - negative spec exam Dispo: routine care, anticipate discharge home D/w Dr. Cornelio German MD, PGY1 Extracted from:Title: Clinical Document Author: Bridgett Peterson MD Date: 07/13/19 History of Present Illness EDC: 07/06/19 EGA: 41w0d HPI: 18y at 41w0d by LMP consistent with reported first T sono with HSV2+ and asthma, presents for contractions for the last 2 days Denies ctx/LOF/VB. +FM. Denies CANTU/scotomata/RUQ pain. PNC: [facility] 1. Hospitalizations: none 2. PNL: B+/neg, Hgb 11.2, RI, RPRNR, Hep B neg, GC/CT neg/neg, Ucx neg, 1hGTT WNL, GBS neg, 3THIV neg 3. US: normal by patient report ObHx: G1 GYNHx: 12/qmonth/5-6days Denies hx STDs PMH: Asthma, HSV-2 PSH: denies Meds: PNV All: PCN (was told by mom), does not remember reaction SHx: neg x3 FHx: denies Review of Systems Constitutional symptoms: Negative except as documented in HPI. Skin symptoms: Negative except as documented in HPI. Eye symptoms: Negative except as documented in HPI. ENMT symptoms: Negative except as documented in HPI. Respiratory symptoms: Negative except as documented in HPI. Cardiovascular symptoms: Negative except as documented in HPI. Gastrointestinal symptoms: Negative except as documented in HPI. Genitourinary symptoms: Negative except as documented in HPI. Musculoskeletal symptoms: Negative except as documented in HPI. Physical Examination Vital Signs Measurements 07/13/2019 17:05 Heparin Dosing Weight (kg) 58.79 07/13/2019 17:03 Height 157.48 cm Height Collection Method Stated Weight 71.818 kg Dosing Weight Collection Method Measured Body Surface Area 1.7725 m2 Body Mass Index 28.96 m2 BMI Percentile 91.82 . 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 Labor: BS 6, pelvis adequate for vagi nal delivery, will admit for labor augmentation with pit as tolerated 2. Asthma - stable on PRN Albuterol not used in [facility] - no hx of intubation or hospitalization 3. HSV + - first and only outbreak in February - on Valtrex suppression - negative spec exam 4. FHTs cat I 5. GBS neg/HIV neg 6. Cephalic/post plac/3390g 7. brbo/desires epidural/BCM: Nexplanon/ Accepts transfusion Dispo: Admit to L&D for labor management as tolerated Discussed and seen with Dr. Peterson, Attending physician Shayna Collado PGY2 Attending Note Patient seen and chart reviewed. 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 I agree with the plan for admission in latent labor. No s/sx of HSV, negative speculum examination. All questions answered. 07/16/2019 [facility] Plan of Care Plan of Care Date Source DTaP,Tdap,and Td Vaccines (2 - Td) 05/03/2029 [facility] CHLAMYDIA SCREENING 06/05/2020 [facility] CHLAMYDIA SCREENING 12/05/2019 [facility] CBC WITH DIFF LAB Routine High-risk in third trimester 1 Occurrences starting 06/05/2019 until 08/03/2019 08/03/2019 [facility] Upcoming EncountersDateTypeSpecialtyCare TeamDescription 06/14/2019 Routine Visit OB Satellites Ronni Bell Manuel, [id number] [address] [place], KIERA [phone] (Fax) Scheduled OrdersNameTypePriorityAssociated DiagnosesOrder Schedule CBC WITH DIFF LAB Routine High-risk in third trimester 1 Occurrences starting 06/05/2019 until 08/03/2019 Health MaintenanceDue DateLast DoneComments MENINGOCOCCAL B VACCINES (1 of 2 - Risk Bexsero 2-dose series) 11/25/2009 HPV VACCINES (1 - Female 3-dose series) 11/25/2014 INFLUENZA VACCINE (#1) 2019 12/04/2018 CHLAMYDIA SCREENING 06/05/2020 06/05/2019, 12/04/2018 DTaP,Tdap,and Td Vaccines (2 - Td) 05/03/2029 05/03/2019 MENINGOCOCCAL VACCINE Aged Out No longer eligible based on patient's age to complete this topic PNEUMOCOCCAL 0-64 YEARS COMBINED SERIES Aged Out No longer eligible based on patient's age to complete this topic documented as of this encounter 06/05/2019 [facility] INFLUENZA VACCINE (#1) 019 [facility] Upcoming EncountersDateTypeSpecialtyCare TeamDescription 06/05/2019 Routine Visit OB Satellites Ronni Bell Kaleb, [id number] [address] [place], KIERA [phone] (Fax) Health MaintenanceDue DateLast DoneComments MENINGOCOCCAL B VACCINES (1 of 2 - Risk Bexsero 2-dose series) 11/25/2009 HPV VACCINES (1 - Female 3-dose series) 11/25/2014 INFLUENZA VACCINE (#1) 2019 12/04/2018 CHLAMYDIA SCREENING 12/05/2019 12/04/2018 DTaP,Tdap,and Td Vaccines (2 - Td) 05/03/2029 05/03/2019 MENINGOCOCCAL VACCINE Aged Out No longer eligible based on patient's age to complete this topic PNEUMOCOCCAL 0-64 YEARS COMBINED SERIES Aged Out No longer eligible based on patient's age to complete this topic documented as of this encounter 05/20/2019 [facility] Upcoming EncountersDateTypeSpecialtyCare TeamDescription 05/17/2019 Routine Visit OB Satellites Bell Rudolph, [id number] [place], [place] [phone] (Fax) Health MaintenanceDue DateLast DoneComments MENINGOCOCCAL B VACCINES (1 of 2 - Risk Bexsero 2-dose series) 11/25/2009 HPV VACCINES (1 - Female 3-dose series) 11/25/2014 DTaP,Tdap,and Td Vaccines (1 - Tdap) 11/25/2018 INFLUENZA VACCINE 05/26/2019 12/04/2018 CHLAMYDIA SCREENING 12/05/2019 12/04/2018 MENINGOCOCCAL VACCINE Aged Out No longer eligible based on patient's age to complete this topic PNEUMOCOCCAL 0-64 YEARS COMBINED SERIES Aged Out No longer eligible based on patient's age to complete this topic documented as of this encounter 05/03/2019 [facility] DTaP,Tdap,and Td Vaccines (1 - Tdap) 11/25/2018 [facility] HPV VACCINES (1 - Female 3-dose series) 11/25/2014 [facility] MENINGOCOCCAL B VACCINES (1 of 2 - Risk Bexsero 2-dose series) 11/25/2009 [facility] Social History Social History Date Source Social History TypeResponse Alcohol Past, Type Wine. Substance Abuse Use: Past. Type: Marijuana. Smoking Status Former smoker; Type: marijuana; Exposure to Tobacco Smoke None; Cigarette Smoking Last 365 Days No; Reg Smoking Cessation Counseling No entered on: 07/13/19 07/14/2019 [facility] Tobacco UseTypesPacks/DayYears UsedDate Never Smoker Smokeless Tobacco: Never Used Alcohol UseDrinks/Weekoz/WeekComments Yes stopped in September Estimated Date of DeliveryComments Yes 07/06/2019 Based on Ultrasound Sex Assigned at BirthDate Recorded Not on file Job Start DateOccupationIndustry Not on file Not on file Not on file Travel HistoryTravel StartTravel End No recent travel history available. documented as of this encounter 04/01/2019 [facility] Family History No Data Provided for This Section Advance Directives No Data Provided for This Section Functional Status No Data Provided for This Section
--- OUTSIDE RECORDS SUMMARY | 2020-03-06 15:53 | XMS REPORT | Summary of Care ---
Author Author [facility] - Health Organization [facility] - Health Address Unknown Phone Unavailable Care Team Providers Care Medical Coordinator Pesticide Use Name Role Phone Bell Rudolph CNM PCP Reason for Visit * Reason Comments Care Encounter Details Care Team Description Date Type Department Bell Rudolph CNM [address] [place] [address] High-risk in third trimester ( Primary Dx); Herpes simplex vulvovaginitis; Need for Tdap vaccination; Nausea 05/03/2019 Routine [facility] Visit [facility] [address] [place] [address] Allergies Comments Active Allergy Reactions Severity Noted Date Told when a baby was allergic Penicillins Rash 12/04/2018 documented as of this encounter (statuses as of 05/03/2019) Medications End Date Status Medication Sig Dispensed [...] as of this encounter (statuses as of 05/03/2019) Active Problems Problem Noted Date Nausea 05/03/2019 Need for Tdap vaccination 04/16/2019 Herpes simplex vulvovaginitis 03/04/2019 Overview: Outbreak at 22 and 27w. Prob recurren t by hx. Initial outbreak in 2018 Rubella non-immune status, antepartum 01/01/2019 Overview: PP MMR Allergy to penicillin 12/05/2018 Asthma affecting , antepartum 12/04/2018 High-risk in third trimester 12/04/2018 Estimated Date of Delivery Comments Yes 07/06/2019 Based on Ultrasound documented as of this encounter (statuses as of 05/03/2019) Resolved Problems Problem Noted Date Resolved Date Cough 01/01/2019 02/04/2019 Gastroenteritis 12/22/2018 02/04/2019 Exposure to benzene 12/22/2018 04/16/2019 Primigravida in first trimester 12/05/20182018 Bacterial vaginosis 12/05/2018 03/04/2019 Overview: + BV noted on swab Patient asymptomatic Will defer treatment Nausea and vomiting in 12/04/201804/16 Need for prophylactic vaccination and inoculation aga inst influenza 12/04/2018 02/04/2019 documented as of this encounter (statuses as of 05/03/2019) Immunizations Name Administration Dates Next Due Influenza [...] Signs Reading Time Taken Comments Vital Sign 97/62 05/03/2019 11:01 AM CDT Blood Pressure 86 05/03/2019 11:01 AM CDT Pulse 36.1 C (96.9 F) 05/03/2019 11:01 AM CDT Temperature 20 05/03/2019 11:01 AM CDT Respiratory Rate - - Oxygen Saturation - - Inhaled Oxygen Concentration 67.6 kg (149 lb) 05/03/2019 11:01 AM CDT Weight 157.5 cm (5' 2") 05/03/2019 11:01 AM CDT Height 27.25 05/03/2019 11:01 AM CDT Body Mass Index documented in this encounter Progress Notes * Bell Rudolph, KACIE - 05/03/2019 10:45 AM CDT Chief complaint: Chief Complaint Patient presents with Care CC: Follow Up Visit Yulisa Garcia is a 18 year old, , /White female. Patient's last menstrual period was 10/07/2018. She is 30w6d with an intrauterine pregna ncy. Her estimated date of delivery is 07/06/2019, by Ultrasound. She has no c omplaints today. Except nausea and light headed Histories OB History Para Term AB Living [...] file Gets together: Not on file Attends voodoo service: Not on file Active member of [...] control/protection: None Labs Labs are pending. and No visits with results within 1 Month(s) from this visit. Latest known visit with results is: Routine Visit on 04/01/2019 Component Date Value GLUC 1 HR 04/01/2019 62* WBC 04/01/2019 10.54 RBC 04/01/2019 3.93 HGB 04/01/2019 12.1 HCT 04/01/2019 36.6 MCV 04/01/2019 93.1 MCH 04/01/2019 30.8 MCHC 04/01/2019 33.1 RDW-SD 04/01/2019 44.2 RDW-CV 04/01/2019 12.9 PLT 04/01/2019 252 MPV 04/01/2019 10.9 IPF % 04/01/2019 5.6 NRBC/100 WBC 04/01/2019 0.0 NRBC x10^3 04/01/2019 <0.01 GRAN MAT (NEUT) % 04/01/2019 71.1 IMM GRAN % 04/01/2019 1.50 LYMPH % 04/01/2019 16.0 MONO % 04/01/2019 8.7 EOS % 04/01/2019 2.3 BASO % 04/01/2019 0.4 GRAN MAT x10^3(ANC) 04/01/2019 7.49* IMM GRAN x10^3 04/01/2019 0.16* LYMPH x10^3 04/01/2019 1.69 MONO x10^3 04/01/2019 0.92 EOS x10^3 04/01/2019 0.24 BASO x10^3 04/01/2019 0.04 POCT U SP GRAV 04/01/2019 na POCT PH U 04/01/2019 8.0 POCT U LEUK EST 04/01/2019 neg POCT U NIT 04/01/2019 neg POCT U PROT 04/01/2019 neg POCT U GLU 04/01/2019 neg POCT U KETONE 04/01/2019 neg POCT U UROBILI 04/01/2019 na POCT U BILI 04/01/2019 na POCT U BLD 04/01/2019 neg POCT U COLOR 04/01/2019 yellow POCT U APPEAR 04/01/2019 clear Radiology No new radiology. Allergies Yulisa is allergic to pcn [penicillins]. Medications Yulisa has a current medication list which includes the following prescriptio n(s): doxylamine-pyridoxine (vit b6), albuterol, and pnv 67-iron ps-folate no.1- dha. Review of Systems BP 97/62 | Pulse 86 | Temp 36.1 C (96.9 F) (Tympanic) | Resp 20 | Ht 5' 2" (1.575 m) | Wt 149 lb (67.6 kg) | LMP 10/07/2018 | BMI 27.25 kg/m Pregravid BMI: 21.8 Physical Exam Assessment/Plan High-risk in third trimester (primary encounter diagnosis) Comment: Plan: POCT URINALYSIS W/O SPECIFIC GRAVITY, TDAP (ADACEL) IMMUNIZATION Herpes simplex vulvovaginitis Comment: no outbreak since February Plan: suppression at 36w Need for Tdap vaccination Comment: Plan: Nausea Comment: Plan: doxylamine-pyridoxine, vit B6, (DICLEGIS) 10-10 mg per tablet RX sent Return to clinic in 2 weeks. at 30w6d This visit did not involve counseling and coordination that comprised more than 50% of the visit time. documented in this encounter Plan of Treatment Care Team Description Date Type Specialty Bell Rudolph CNM [address] [id number] 05/17/2019 Routine [facility] Satell[facility] Visit Health Maintenance Due Date Last Done Comments MENINGOCOCCAL B VACCINES 11/25/2009 (1 of 2 - Risk Bexsero 2-dose series) HPV VACCINES (1 - Female 11/25/2014 3-dose series) DTaP,Tdap,and Td Vaccines 11/25/2018 (1 - Tdap) INFLUENZA VACCINE 05/26/2019 12/04/2018 CHLAMYDIA SCREENING 12/05/2019 12/04/2018 MENINGOCOCCAL VACCINE Aged Out No longer eligib le based on patient's age to complete this topic PNEUMOCOCCAL 0-64 YEARS Aged Out No longer elig ible based COMBINED SERIES on patient's age to complete this topic documented as of this encounter Procedures Comments Procedure Name Priority Date/Time Associated Diag nosis TDAP (ADACEL) Routine 05/03/2019 High-risk pregn joseph in IMMUNIZATION 11:48 AM CDT third trimester POCT URINALYSIS W/O Routine 05/03/2019 High-risk in SPECIFIC GRAVITY third trimester documented in this encounter Results * POCT URINALYSIS W/O SPECIFIC GRAVITY (05/03/2019) POCT PH U 7 5 - 8 mg/dl POCT U LEUK EST 2 Negative - Negative POCT U NIT n Negative - Negative POCT U PROT tr Negative - Negative POCT U GLU n Negative - Negative POCT U KETONE n Negative - Negative POCT U BLD 1 Negative - Negative Specimen Urine - URINE, CLEAN CATCH documented in this encounter Visit Diagnoses Diagnosis High-risk in third trimester - Primary Herpes simplex vulvovaginitis Need for Tdap vaccination Need for prophylactic vaccination with combined eaborhgfnp-vtfatpa-sxzqlnzbp (DTP) vaccine Nausea Nausea alone documented in this encounter Insurance Type Payer Benefit Subscriber ID Effective Phone Address Plan / Dates Group Medicaid [employer] - SUPERIOR-( xxxxxxxxx 2018-P [place] [place] , [place] [phone] [facility] [place] [id number] documented as of this encounter
--- OUTSIDE RECORDS SUMMARY | 2020-03-06 15:53 | XMS REPORT | Summary of Care ---
Author Author [facility] Organization [facility] Address Unknown Phone Unavailable Encounter MARICRUZ Andrade(LANA) [id number] Date(s): 07/13/19 - 07/16/19 [facility] [address] [employer] provided by [facility] [place] [address]- Discharge Disposition: Home or Self Care Attending Physician: Bridgett Peterson MD Admitting Physician: Bridgett Peterson MD Vital Signs 1 2 3 Most recent to oldest [Reference Range]: 157.48 cm (07/13/19 8:00 PM) 157.48 cm (07/13/19 5:03 PM) Height 97.7 DegF (07/16/19 8:30 AM) 97.9 DegF (07/16/19 12:02 AM) 98.4 DegF (07/15/19 4:00 PM) Temperature Oral [96.4-99.1 DegF] 103/62 mmHg (07/16/19 8:30 AM) 111/69 mmHg (07/16/19 12:02 AM) 107/68 mmHg (07/15/19 4:00 PM) Blood Pressure [90-140/60-90 mmHg] 18 BRMIN (07/16/19 8:30 AM) 18 BRMIN (07/16/19 12:02 AM) 18 BRMIN (07/15/19 4:00 PM) Respiratory Rate [14-20 BRMIN] 71 bpm (07/16/19 8:30 AM) 80 bpm (07/16/19 12:02 AM) 80 bpm (07/15/19 4:00 PM) Peripheral Pulse Rate [60-100 bpm] 71.818 kg (07/13/19 8:00 PM) 71.818 kg (07/13/19 5:03 PM) Weight 28.96 m2 (07/13/19 8:00 PM) 28.96 m2 (07/13/19 5:03 PM) Body Mass Index Problem List Condition Effective Dates Status Health Status Informan t Asthma(Confirmed) Resolved 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 Allergies, Adverse Reactions, Alerts Substance Reaction Severity Status penicillins Active Medications acetaminophen-hydrocodone 325 mg-5 mg oral tablet 1 tab, Route: PO, Drug Form: TAB, Dosing Weight 71.818, kg, Q4H, PRN Pain Score 4-6, Start date: 07/13/19 18:34:00 CDT, Duration: 30 day, Stop date: 08/12/19 18 :33:00 SANDER SETTER, 0 Notes: (Same as: [place] 325/5) Do not exceed 4gm/day of acetaminophen. Start Date: 07/13/19 Stop Date: 07/16/19 Status: Discontinued acetaminophen-hydrocodone 325 mg-5 mg oral tablet 2 tab, Route: PO, Drug Form: TAB, Dosing Weight 71.818, kg, Q4H, PRN Pain Score 7-10, Start date: 07/13/19 18:34:00 CDT, Duration: 30 day, Stop date: 08/12/19 1 8:33:00 SANDER SETTER, 0 Notes: (Same as: [place] 325/5) Do not exceed 4gm/day of acetaminophen. Start Date: 07/13/19 Stop Date: 07/16/19 Status: Discontinued bisacodyl 15 mg, 3 tab, Route: PO, Drug form: ECTAB, Daily, Dosing Weight 71.818, kg, PRN Other -See Comment, Start date: 07/14/19 10:23:00 CDT, Duration: 30 day, Stop da te: 08/13/19 10:22:00 SANDER SETTER, 0 Notes: (Same As: Dulcolax, Correctol) (Do Not Crush) "Do Not Crush" Start Date: 07/14/19 Stop Date: 07/16/19 Status: Discontinued bisacodyl 10 mg, 1 supp, Route: NV, Drug form: SUPP, PRN, Dosing Weight 71.818, kg, PRN Ot her -See Comment, Start date: 07/14/19 10:23:00 CDT, Duration: 30 day, Stop date : 08/13/19 9:22:00 SANDER SETTER, 0 Notes: (Same As: Dulcolax, Bisco-Lax) Start Date: 07/14/19 Stop Date: 07/16/19 Status: Discontinued butorphanol 1 mg, 0.5 mL, Route: IVP, Drug form: INJ, Q2H, Dosing Weight 71.818, kg, PRN Brigette n Score 4-6, Start date: 07/13/19 18:34:00 CDT, Duration: 30 day, Stop date: 18:33:00 SANDER SETTER, 0 Notes: (Same As: Stadol) MEDICATION WASTE Product Size: 2 mgProduct Was asad: ___ mg Start Date: 07/13/19 Stop Date: 07/16/19 Status: Discontinued butorphanol 2 mg, 1 mL, Route: IVP, Drug form: INJ, Q2H, Dosing Weight 71.818, kg, PRN Pain Score 7-10, Start date: 07/13/19 18:34:00 CDT, Duration: 30 day, Stop date: 07/26 05/13 18:33:00 SANDER SETTER, 0 Notes: (Same As: Stadol) MEDICATION WASTE Product Size: 2 mgProduct Was asad: ___ mg Start Date: 07/13/19 Stop Date: 07/16/19 Status: Discontinued carboprost 250 microgram, 1 mL, Route: IM, Drug form: INJ, ONCALL, Dosing Weight 71.818, kg , Start date: 07/13/19 19:00:00 CDT, Duration: 30 day, Stop date: 08/12/19 17:59 :00 SANDER SETTER, 0 Notes: (Same As: Hemabate) Start Date: 07/13/19 Stop Date: 07/16/19 Status: Discontinued CitraNatal [place] oral capsule 1 cap, PO, Daily, # 60 cap, 0 Refill(s), Pharmacy: [facility]/pharmacy #[id number] Start Date: 07/16/19 Status: Ordered citric acid-sodium citrate 30 mL, Route: PO, Drug Form: SOLN, Dosing Weight 71.818, kg, ONCALL, Start date: 07/13/19 19:00:00 CDT, Duration: 30 day, Stop date: 08/12/19 17:59:00 SANDER SETTER, 0 Notes: (Same As: Bicitrdheeraj, Cytra-2) Sodium citrate-citric acid (500-334 mg/5 mL): 1 mL contains sodium 1 mEq/mL and bicarbonate 1 mEq/mL Start Date: 07/13/19 Stop Date: 07/16/19 Status: Discontinued Depo-Provera 150 mg, 1 mL, Route: IM, Drug form: INJ, ONCE, Dosing Weight 71.818, kg, Start d ate: 07/15/19 6:41:00 CDT, Stop date: 07/15/19 6:41:00 CDT, 0 Notes: (Same as: Depo-Provera)This is NOT Depo-SubQ Provera 104For IM use only MEDICATION WASTE Product Size: 150 mgProduct Wasted: ___ mg Start Date: 07/15/19 Stop Date: 07/16/19 Status: Completed Dermoplast 20% topical spray 1 spray, Route: TOP, PRN, Drug form: SPRY, PRN Irritation, Start date: 07/14/19 10:23:00 CDT, Duration: 30 day, Stop date: 08/13/19 9:22:00 SANDER SETTER, 0 Notes: (Same As: Dermoplast)WASTE: Aerosol - Return to Pharmacy FOR EXTERNAL US E ONLY Start Date: 07/14/19 Stop Date: 07/16/19 Status: Discontinued docusate 100 mg, 1 cap, Route: PO, Drug form: CAP, BID, Dosing Weight 71.818, kg, PRN Con stipation, Start date: 07/14/19 10:23:00 CDT, Duration: 30 day, Stop date: 08/13 10:22:00 SANDER SETTER, 0 Notes: (Same as: Colace) (Do Not Crush) Start Date: 07/14/19 Stop Date: 07/16/19 Status: Discontinued docusate sodium 100 mg oral capsule 100 mg = 1 cap, PO, BID, PRN Constipation, # 60 cap, 1 Refill(s), Pharmacy: [facility]/ pharmacy #[id number] Start Date: 07/16/19 Status: Ordered famotidine 20 mg, 2 mL, Route: IVP, Drug form: INJ, ONCALL, Dosing Weight 71.818, kg, Start date: 07/13/19 19:00:00 CDT, Duration: 30 day, Stop date: 08/12/19 17:59:00 SANDER SETTER, 0 Notes: (Same as: Pepcid)Can be dilute in 5-10cc NS IVP: Slow IV push over at le ast 2 minutes. Start Date: 07/13/19 Stop Date: 07/16/19 Status: Discontinued ibuprofen 600 mg, 1 tab, Route: PO, Drug form: TAB, Q6H, Dosing Weight 71.818, kg, PRN Oth er -See Comment, Start date: 07/13/19 18:34:00 CDT, Duration: 30 day, Stop date: 08/12/19 18:33:00 SANDER SETTER, 0 Notes: (Same as: Motrin)"Do Not Crush" Take with food. Start Date: 07/13/19 Stop Date: 07/14/19 Status: Discontinued ibuprofen 600 mg, 1 tab, Route: PO, Drug form: TAB, Q6Hnow, Dosing Weight 71.818, kg, Star t date: 07/14/19 11:00:00 CDT, Duration: 30 day, Stop date: 08/13/19 5:00:00 SANDER SETTER , 0 Notes: (Same as: Motrin)"Do Not Crush" Take with food. Start Date: 07/14/19 Stop Date: 07/16/19 Status: Discontinued ibuprofen 600 mg oral tablet 600 mg = 1 tab, PO, Q6H, # 30 tab, 0 Refill(s), Pharmacy: [facility]/pharmacy #[id number] Start Date: 07/16/19 Stop Date: 08/17/19 Status: Ordered Lactated Ringers (Bolus) IV 1,000 mL, 1,000 ml/hr, Infuse Over: 1 hr, Route: IV, 1,000, Drug form: INJ, ONCE , Dosing Weight 71.818 kg, Start date: 07/13/19 18:34:00 CDT, Stop date: 9 18:34:00 CDT, Bolus for regional anesthesia per unit routine, 0 Start Date: 07/13/19 Stop Date: 07/13/19 Status: Completed Lactated Ringers IV 1,000 mL 1,000 mL, Rate: 125 ml/hr, Infuse over: 8 hr, Route: IV, Dosing Weight 71.818 kg , Total Volume: 1,000, Start date: 07/13/19 18:34:00 CDT, Duration: 30 day, Stop date: 08/12/19 18:33:00 SANDER SETTER, 1.8, m2, 0 Start Date: 07/13/19 Stop Date: 07/16/19 Status: Discontinued Lactated Ringers IV 1,000 mL 1,000 mL, Rate: 100 ml/hr, Infuse over: 10 hr, Route: IV, Dosing Weight 71.818 k g, Total Volume: 1,000, Start date: 07/14/19 10:23:00 CDT, Duration: 30 day, Sto p date: 08/13/19 10:22:00 SANDER SETTER, 1.8, m2, 0 Start Date: 07/14/19 Stop Date: 07/16/19 Status: Discontinued lanolin topical 1 appl, Route: TOP, PRN, Drug form: OINT, PRN Other -See Comment, Start date: 10:23:00 CDT, Duration: 30 day, Stop date: 08/13/19 9:22:00 SANDER SETTER, 0 Start Date: 07/14/19 Stop Date: 07/16/19 Status: Discontinued lidocaine 1% 20 mL, Route: PERCUT, Drug Form: INJ, Dosing Weight 71.818, kg, PRN, PRN Other - See Comment, Start date: 07/13/19 18:34:00 CDT, Duration: 1 doses or times, Stop date: Limited # of times, 0 Notes: Preservative free. (Same as: Xylocaine MPF) Start Date: 07/13/19 Stop Date: 07/16/19 Status: Discontinued lidocaine 1% injectable solution 0.25 mL, Route: INTRADERM, Drug Form: INJ, Dosing Weight 71.818, kg, PRN, PRN Ot her -See Comment, Start date: 07/13/19 18:34:00 CDT, Duration: 30 day, Stop date : 08/12/19 17:33:00 SANDER SETTER, 0 Notes: Preservative free. (Same as: Xylocaine MPF) Start Date: 07/13/19 Stop Date: 07/16/19 Status: Discontinued M-M-R II 0.5 mL, Route: SUB-Q, Drug Form: PDR/INJ, Dosing Weight 71.818, kg, ONCALL, Give only if patient rubella non-immune, Start date: 07/14/19 11:00:00 CDT, Duration: 1 doses or times, Stop date: 07/27/19 0:00:00 CDT, 0 Notes: (Same as: M-M-R II) (zuiuaje-gqqgr-nvjjgwc virus vaccine 0.5 ml INJ VL)WA RITIKA: F/P - Red; E -Red GIVE PRIOR TO DISCHARGE Start Date: 07/14/19 Stop Date: 07/16/19 Status: Discontinued methylergonovine 0.2 mg, 1 mL, Route: IM, Drug form: INJ, ONCALL, Dosing Weight 71.818, kg, Start date: 07/13/19 19:00:00 CDT, Duration: 30 day, Stop date: 08/12/19 17:59:00 SANDER SETTER, 0 Notes: (Same as:Methergine) Start Date: 07/13/19 Stop Date: 07/14/19 Status: Completed methylergonovine 0.2 mg, 1 mL, Route: IM, Drug form: INJ, PRN, Dosing Weight 71.818, kg, PRN Othe r -See Comment, Start date: 07/14/19 10:23:00 CDT, Duration: 30 day, Stop date: 08/13/19 9:22:00 SANDER SETTER, 0 Notes: (Same as:Methergine) Start Date: 07/14/19 Stop Date: 07/16/19 Status: Discontinued misoprostol 1,000 microgram, 5 tab, Route: NV, Drug form: TAB, ONCALL, Dosing Weight 71.818, kg, Start date: 07/13/19 19:00:00 CDT, Duration: 1 doses or times, 0 Notes: (Same as:Cytotec) Take with food Start Date: 07/13/19 Stop Date: 07/14/19 Status: Completed ondansetron 4 mg, 2 mL, Route: IVP, Drug form: INJ, Q8H, Dosing Weight 71.818, kg, PRN Nause a & Vomiting, Start date: 07/13/19 18:34:00 CDT, Duration: 30 day, Stop date: 08/12/19 18:33:00 SANDER SETTER, 0 Notes: (Same as: Zofran) MEDICATION WASTE Product Size: 4 mgProduct Was asad: ___ mg Start Date: 07/13/19 Stop Date: 07/14/19 Status: Discontinued ondansetron 4 mg, 2 mL, Route: IVP, Drug form: INJ, Q8H, Dosing Weight 71.818, kg, PRN Nause a & Vomiting, Start date: 07/14/19 10:23:00 CDT, Duration: 30 day, Stop date: 08/13/19 10:22:00 SANDER SETTER, 0 Notes: (Same as: Zofran) MEDICATION WASTE Product Size: 4 mgProduct Was asad: ___ mg Start Date: 07/14/19 Stop Date: 07/16/19 Status: Discontinued oxytocin 30 units in NS 500ml (Titrate) IV 30 unit 30 unit, 500 mL, Rate: 42 ml/hr, Infuse over: 11.9 hr, Dosing Weight 71.818, kg, Route: IV, Total Volume: 500 mL, Start date: 07/13/19 18:34:00 CDT, Duration: 2 day, Stop date: 07/15/19 18:33:00 CDT, Replace Every: 11.9 hr, 0 Start Date: 07/13/19 Stop Date: 07/15/19 Status: Completed oxytocin 30 units in NS 500ml (Titrate) IV 30 unit 30 unit, 500 mL, Rate: 42 ml/hr, Infuse over: 11.9 hr, Dosing Weight 71.818, kg, Route: IV, Total Volume: 500 mL, Start date: 07/14/19 10:23:00 CDT, Duration: 2 day, Stop date: 07/16/19 10:22:00 CDT, Replace Every: 11.9 hr, 0 Start Date: 07/14/19 Stop Date: 07/16/19 Status: Completed oxytocin 30 units in NS 500ml (Titrate) IV 30 unit 30 unit, 500 mL, Rate: Titrate, Dosing Weight 71.818, kg, Route: IV, Total Volum e: 500 mL, Start date: 07/13/19 18:36:00 CDT, Duration: 2 day, Stop date: 18:35:00 CDT, Replace Every: 24 hr, 0 Start Date: 07/13/19 Stop Date: 07/14/19 Status: Discontinued Multivitamins oral tablet 1 tab, Route: PO, Drug Form: TAB, Dosing Weight 71.818, kg, Daily, Start date: 1 9:00:00 CDT, Duration: 30 day, Stop date: 08/13/19 9:00:00 SANDER SETTER, 0 Start Date: 07/15/19 Stop Date: 07/16/19 Status: Discontinued terbutaline 0.25 mg, 0.25 mL, Route: SUB-Q, Drug form: INJ, PRN, Dosing Weight 71.818, kg, P RN Other -See Comment, Start date: 07/13/19 18:34:00 CDT, Duration: 1 doses or t imes, Stop date: Limited # of times, 0 Notes: DO NOT USE IN FORMER HAND AREA(Same As: Dee) Start Date: 07/13/19 Stop Date: 07/16/19 Status: Discontinued tranexamic acid 1 gm, 10 mL, Route: IVPB, Drug form: INJ, ONCALL, Dosing Weight 71.818, kg, Star t date: 07/13/19 19:00:00 CDT, Duration: 1 doses or times, 0 Notes: (Same As: Cyklokapron) Start Date: 07/13/19 Stop Date: 07/16/19 Status: Discontinued zolpidem 5 mg, 1 tab, Route: PO, Drug form: TAB, Bedtime, Dosing Weight 71.818, kg, PRN S leep, Start date: 07/14/19 10:23:00 CDT, Duration: 30 day, Stop date: 08/13/19 1 0:22:00 SANDER SETTER, 0 Notes: (Same As: Jaiien) Start Date: 07/14/19 Stop Date: 07/16/19 Status: Discontinued Results Most recent to 1 2 oldest [Reference Range]: Neutrophils # 8.6 K/CMM [1.5-8.1 K/CMM] *HI* (07/13/19 7:44 PM) Lymphocytes # 1.8 K/CMM [1.0-5.5 K/CMM] (07/13/19 7:44 PM) Monocytes # [0.0-0.8 0.7 K/CMM K/CMM] (07/13/19 7:44 PM) Eosinophils # 0.1 K/CMM [0.0-0.5 K/CMM] (07/13/19 7:44 PM) ABO/Rh O POS *Unknown* (07/13/19 7:44 PM) UDS Note See Note (07/13/19 7:49 PM) Antibody Scrn Negative (07/13/19 7:44 PM) U Amph Scr Negative [Negative] *NA* (07/13/19 7:49 PM) U Kaycee Scr Negative [Negative] *NA* (07/13/19 7:49 PM) Basophils [0.0-1.0 0.2 % %] (07/13/19 7:44 PM) U Benzodiaz Scr Negative [Negative] *NA* (07/13/19 7:49 PM) U Cocaine Scr Negative [Negative] *NA* (07/13/19 7:49 PM) Eosinophils [0.0-4.0 1.1 % %] (07/13/19 7:44 PM) Hep Bs Ag [Negative] Negative *NA* (07/13/19 7:44 PM) Hct [36.0-48.0 %] 30.4 % 34.8 % *LOW* *LOW* (07/15/19 6:52 AM) (07/13/19 7:44 PM) Hgb [12.0-16.0 g/dL] 10.5 g/dL 11.7 g/dL *LOW* *LOW* (07/15/19 6:52 AM) (07/13/19 7:44 PM) Lymphocytes 16.2 % [20.0-40.0 %] *LOW* (07/13/19 7:44 PM) MCH [27.0-31.0 pg] 29.9 pg (07/13/19 7:44 PM) MCHC [32.0-36.0 33.7 g/dL g/dL] (07/13/19 7:44 PM) MCV [80.0-98.0 fL] 88.6 fL (07/13/19 7:44 PM) U Methadone Scr Negative [Negative] *NA* (07/13/19 7:49 PM) Monocytes [2.0-12.0 6.6 % %] (07/13/19 7:44 PM) MPV [7.4-10.4 fL] 8.1 fL (07/13/19 7:44 PM) U Opiate Scr Negative [Negative] *NA* (07/13/19 7:49 PM) U Phencyclidine Scr Negative [Negative] *NA* (07/13/19 7:49 PM) Platelet [133-450 245 K/CMM K/CMM] (07/13/19 7:44 PM) Segs [45.0-75.0 %] 75.9 % *HI* (07/13/19 7:44 PM) U Propoxyph Scr Negative [Negative] *NA* (07/13/19 7:49 PM) RBC [4.20-5.40 3.92 M/CMM M/CMM] *LOW* (07/13/19 7:44 PM) RDW [11.5-14.5 %] 13.3 % (07/13/19 7:44 PM) U Cannab Scr Negative [Negative] *NA* (07/13/19 7:49 PM) UA Bacteria [None Occasional /HPF Seen /HPF] *NA* (07/13/19 7:49 PM) UA Bili [Negative] Negative *NA* (07/13/19 7:49 PM) UA Blood [Negative] Large *ABN* (07/13/19 7:49 PM) UA Color [Yellow] Light Yellow *NA* (07/13/19 7:49 PM) UA Glucose [Negative Negative mg/dL mg/dL] *NA* (07/13/19 7:49 PM) UA Ketones [Negative 20 mg/dL mg/dL] *ABN* (07/13/19 7:49 PM) UA Leuk Est Small [Negative] *ABN* (07/13/19 7:49 PM) UA Mucus [None Seen Few /LPF /LPF] *NA* (07/13/19 7:49 PM) UA Nitrite Negative [Negative] (07/13/19 7:49 PM) UA pH [5.0-8.0] 6.0 (07/13/19 7:49 PM) UA Protein [Negative Negative mg/dL mg/dL] (07/13/19 7:49 PM) UA RBC [0-2 /HPF] 6 /HPF *HI* (07/13/19 7:49 PM) UA Spec Grav 1.014 [<=1.030] (07/13/19 7:49 PM) UA Sq Epi [Few /LPF] Few /LPF *NA* (07/13/19 7:49 PM) UA Turbidity [Clear] Clear (07/13/19 7:49 PM) UA Urobilinogen <1.0 mg/dL [0.1-1.0 mg/dL] (07/13/19 7:49 PM) UA WBC [0-5 /HPF] 10 /HPF *HI* (07/13/19 7:49 PM) WBC [3.7-10.4 K/CMM] 11.3 K/CMM *HI* (07/13/19 7:44 PM) HIV. [Negative] Negative *NA* (07/13/19 7:44 PM) Treponemal Ab Non-Reactive [Non-Reactive] *NA* (07/13/19 7:44 PM) Immunizations Given and Recorded Vaccine Date Status Refusal Reason influenza virus vaccine, inactivated 07/16/19 G iven Procedures No data available for this section Social History Social History Type Response Alcohol Past, Type Wine. Substance Abuse Use: Past. Type: Marijuana . Smoking Status Former smoker; Type: mariju [place]; Exposure to Tobacco Smoke None; Cigarette Smoking Last 365 Days No; Reg Smoking C essation Counseling No entered on: 07/13/19 Assessment and Plan Extracted from: Title: Progress Note Author: Grant German MD Date: 07/16/19 R1 FORMER HAND Progress Note S: Pt is feeling well this morning, no complaints. Pain controlled. Tolerating regular diet, voiding, passing flatus. O: VitalsTmp(F)[id number] 07/16 00:[id number]------ 07/15 16:[id number]------ 07/15 08:[id number]/[id number]------ 07/15 00:[id number]------ 07/14 16:[id number]------ 24 Hr Tmax: 98.4F (36.89c) at 07/15 16:0 0Vital Signs are the last 5 in the [...] D/w Dr. Cornelio German MD, PGY1 Extracted from: Title: Clinical Document Author: Bridgett Peterson MD Date : 07/13/19 History of Present Illness EDC: 07/06/19 [...] / mod variability /+ accels /- decels Marydel: q3-5m BSUS: C, post, DVP 4.2cm, EFW [...]
--- OUTSIDE RECORDS SUMMARY | 2020-03-06 15:54 | XMS REPORT | Continuity of Care Document ---
Author Author [facility] t Organization [facility] Address [address] [place] [address] Phone Unavailable Care Team Providers Care Fur Trapper Name Role Phone NO, PCP PCP Unavailable Jennifer Peterson Attphys Ronni CNM, L Bell Attphys Doctor Unassigned, Name No Attphys Unavailable Jennifer Peterson Admphys Payers Payer Name Policy Type Policy Number Effective Date Expiration Date S aylin [facility] [id number] [facility] Problems Condition Name Condition Details Condition Category Status Onset Date Resolution Date Last Treatment Date Treating Clinician Comments Source PAIN WITH URINATION PAIN WITH URINATION Active 07/13/2019 [facility] Diagnosis Active 2019-07-13 00:00:00 2019-07-25 22:20:00 Ash Martinez Nausea Naus ea Active 05/03/2019 06/12/2019 [facility] Health Condition Active 2019-05-03 00:00:00 2019-06-12 14:45:29 Ash Martinez Rubella non-immune status, antepartum Rubella non-immune status, antepartum Active 01/01/2019 06/12/2019 [facility] Health Condition Active 2019-01-01 00:00:00 2019-06-12 14:45:29 Ash Martinez Allergy to penicillin Angel rgy to penicillin Active 12/05/2018 06/12/2019 [facility] Health Condition Active 2018-12-05 00:00:00 2019-06-12 14:45:29 Ash Martinez Asthma (disorder) Asth ma (disorder) Resolved Problem 07/18/2019 [facility] Problem Resolved 2019-07-18 2 1:42:17 Ash Martinez 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) Resolved Problem 07/18/2019 [facility] Problem Resolved 2019-07-18 21:42:17 Zack saldivarloi Juan High-risk in third trimester High-risk in third trimester Active 06/12/2019 [facility] Health Diagnosis Active 2019-06-12 14:45:29 Ash Martinez Herpes simplex vulvovaginitis Herpes simplex vulvovaginitis Active 06/12/2019 [facility] Health Diagnosis Active 2019-06-12 14:45:29 Ash Martinez Need for Tdap vaccination Need for Tdap vaccination Active 05/03/2019 [facility] Health Diagnosis Active 2019-05-03 17:58:34 Ash Martinez Herpes simplex (disorder) Herp es simplex (disorder) Active Problem 07/18/2019 Automatically added by Discern Expert for result @EVENTCDDISP:1 of @RESULT:1 on @EVENTENDDTTM:1. [facility] Problem Active 2019-07-18 21:42:17 Ash Martinez Allergies, Adverse Reactions, Alerts Allergy Name Allergy Type Status Severity Reaction(s) Onset Date Inacti ve Date Treating Clinician Comments Source penicillin G DA Active U 2019-02-25 00:00:00 [facility] PENICILLIN Allergy to Substance Active 2018-12-08 00:00:00 [facility] penicillins penicillins Active Ash Martinez Social History Social Habit Start Date Stop Date Quantity Comments Source Social History 2019-07-14 00:31:30 2019-07-14 00:31:30 Ash Martinez Smoking Status Start Date Stop Date Source Tobacco smoking status NHIS Jeramie rodolfo Martinez Medications Ordered Medication Name Filled Medication Name Start Date Stop Da te Current Medication? Ordering Clinician Indication Dosage Frequency Signature (SIG) Comments Components Source Docusate Sodium 100 MG Oral Capsule 2019-07-16 10:29:00 Yes 100 mg = 1 cap, PO, BID, PRN Constipation, # 60 cap, 1 Refill(s), Pharmacy: [facility]/pharmacy #[id number] Ash Martinez ibuprofen 600 mg oral tablet 2019-07-16 10:29:00 Yes 600 mg = 1 tab, PO, Q6H, # 30 tab, 0 Refill(s), Pharmacy: [facility]/pharmacy #[id number] [facility] CitraNatal [place] oral capsule 2019-07-16 10:29:00 Yes 1 cap, PO, Daily, # 60 cap, 0 Refill(s), Pharmacy: [facility]/pharmacy #[id number] [facility] Multivitamins oral tablet 2019-07-15 14:00:00 No 1 tab, Route: PO, Drug Form: TAB, Dosing Weight 71.818, kg, Daily, Start date: 07/15/19 9:00:00 CDT, Duration: 30 day, Stop date: 08/13/19 9:00:00 [employer], 0 Ash Martinez Depo-Provera 2019-07-15 11:41:00 No Notes: (Same as: Depo-Provera) This is NOT Depo-SubQ Provera 104 For IM use only MEDICATION WASTE Product Size: 150 mg Product Wasted: ___ mg Ash Martinez M-M-R II 2019-07-14 16:00:00 No Notes: (Same as: -M-R II) (ykeyfiy-vrwvc-sfjxexh virus vaccine 0.5 ml INJ VL) WASTE: F/P - Red; E -Red GIVE PRIOR TO DISCHARGE Ash Martinez Ibuprofen 2019-07-14 16:00:00 No Notes: (Same as: Boaz) "Do Not Crush" Take with food. Ash Martinez Oxytocin 2019-07-14 15:23:00 No 30 unit, 500 mL, Rate: 42 ml/hr, Infuse over: 11.9 hr, Dosing Weight 71.818, kg, Route: IV, Total Volume: 500 mL, Start date: 07/14/19 10:23:00 CDT, Duration: 2 day, Stop date: 07/16/19 10:22:00 CDT, Replace Every: 11.9 hr, 0 Ash Martinez Lactated Ringers IV 1,000 mL 2019-07-14 15:23:00 No 1,000 mL, Rate: 100 ml/hr, Infuse over: 10 hr, Route: IV, Dosing Weight 71.818 kg, Total Volume: 1,000, Start date: 07/14/19 10:23:00 CDT, Duration: 30 day, Stop date: 08/13/19 10:22:00 [employer], 1.8, m2, 0 Ash Chávez n Ondansetron 2019-07-14 15:23:00 No Notes: (Same as: Zofran) MEDICATION WASTE Product Size: 4 mg Product Wasted: ___ mg Ash Martinez Docusate 2019-07-14 15:23:00 No Notes: (Same as: Colace) (Do Not Crush) Ash Martinez Bisacodyl 2019-07-14 15:23:00 No Notes: (Same As: Dulcolax, Correctol) (Do Not Crush) "Do Not Crush" Ash Martinez lanolin topical 2019-07-14 15:23:00 No 1 appl, Route: TOP, PRN, Drug form: OINT, PRN Other -See Comment, Start date: 07/14/19 10:23:00 CDT, Duration: 30 day, Stop date: 08/13/19 9:22:00 [employer], 0 Ash Martinez zolpidem 2019-07-14 15:23:00 No Notes: (Shonda e As: Jaiien) Ash Martinez Dermoplast 20% topical spray 2019-07-14 15:23:00 No Notes: (Same As: Dermoplast) WASTE: Aerosol - Return to Pharmacy FOR EXTERNAL USE ONLY Ash Martinez Methylergonovine 2019-07-14 15:23:00 No Notes: (Same as:Methergine) Ash Martinez Famotidine 2019-07-14 00:00:00 No Notes: (Same as: Pepcid) Can be dilute in 5-10cc NS IVP: Slow IV push over at least 2 minutes. Ash Martinez Misoprostol 2019-07-14 00:00:00 No Notes: (Same as:Cytotec) Take with food Ash Martinez Methylergonovine 2019-07-14 00:00:00 No Notes: (Same as:Methergine) Ash Martinez Citric Acid / sodium citrate 2019-07-14 00:00:00 No Notes: (Same As: Bicitra, Cytra-2) Sodium citrate-citric acid (500-334 mg/5 mL): 1 mL contains sodium 1 mEq/mL and bicarbonate 1 mEq/mL [facility] Carboprost 2019-07-14 00:00:00 No Notes: (S dai As: Hemabate) Ash Martinez Tranexamic Acid 2019-07-14 00:00:00 No Notes: (Same As: Cyklokapron) Ash Martinez Oxytocin 2019-07-13 23:36:00 No 30 unit, 500 mL, Rate: Titrate, Dosing Weight 71.818, kg, Route: IV, Total Volume: 500 mL, Start date: 07/13/19 18:36:00 CDT, Duration: 2 day, Stop date: 07/15/19 18:35:00 CDT, Replace Every: 24 hr, 0 Ash Martinez Lidocaine Hydrochloride 10 MG/ML Injectable Solution 07-13 23:34:00 No Notes: Preservative free. (Same as: Xyl ocaine MPF) Ash Martinez Calcium Chloride 0.0014 MEQ/ML / Potassi um Chloride 0.004 MEQ/ML / Sodium Chloride 0.103 MEQ/ML / Sodium Lactate 0.028 MEQ/ML Injectable Solution 2019-07-13 23:34:00 No 1,000 mL, 1,000 ml/hr, Infuse Over: 1 hr, Route: IV, 1,000, Drug form: INJ, ONCE, Dosing Weight 71.818 kg, Start date: 07/13/19 18:34:00 CDT, Stop date: 07/13/19 18:34:00 CDT, Bolus for regional anes thesia per unit routine, 0 Ash cano Lactated Ringers IV 1,000 mL 2019-07-13 23:34:00 No 1,000 mL, Rate: 125 ml/hr, Infuse over: 8 hr, Route: IV, Dosing Weight 71.818 kg, Total Volume: 1,000, Start date: 07/13/19 18:34:00 CDT, Duration: 30 day, Stop date: 08/12/19 18:33:00 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 Ash Martinez Acetaminophen 325 MG / Hydrocodone Bitartrate 5 MG Oral Tabl et 2019-07-13 23:34:00 No Notes: (Sa me as: [place] 325/5) Do not exceed 4gm/day of acetaminophen. 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 For duration of Ash Martinez doxylamine-pyridoxine, vit B6, (DICLEGIS) 10-10 mg per table t 2019-05-03 00:00:00 Yes Take 2 tablets by mouth at [facility]. Ash Martinez albuterol 90 mcg/actuation inhaler 2019-04-16 00:00:00 Yes Inhale 2 Puffs every 6 (six) hours as needed for Wheezing or Shortness of Breath. Ash Martinez PNV 67-iron ps-folate no.1-dha (VITAFOL ULTRA) 29 mg iron- 1 mg-200 mg Cap 2019-02-04 00:00:00 Yes Take 1 capsule by mouth daily. Ash Martinez Vital Signs Vital Name Observation Time Observation Value Comments Source Temperature Oral (F) 2019-07-16 13:30:00 97.7 F [facility] Heart Rate 2019-07-16 13:30:00 [facility] Respitory Rate 2019-07-16 13:30:00 [facility] Systolic (mm Hg) 2019-07-16 13:30:00 Jeramie [facility] [place] Diastolic (mm Hg) 2019-07-16 13:30:00 [facility] Temperature Oral (F) 2019-07-16 05:02:00 97.9 F [facility] Heart Rate 2019-07-16 05:02:00 [facility] Respitory Rate 2019-07-16 05:02:00 [facility] [place] Systolic (mm Hg) 2019-07-16 05:02:00 Jeramie [facility] [place] Diastolic (mm Hg) 2019-07-16 05:02:00 [facility] [place] Temperature Oral (F) 2019-07-15 21:00:00 98.4 F [facility] Heart Rate 2019-07-15 21:00:00 [facility] Respitory Rate 2019-07-15 21:00:00 [facility] Systolic (mm Hg) 2019-07-15 21:00:00 Jeramie rial Juan Diastolic (mm Hg) 2019-07-15 21:00:00 [facility] [place] Height 2019-07-14 01:00:00 157.48 cm [facility] [place] Weight 2019-07-14 01:00:00 [facility] BMI Calculated 2019-07-14 01:00:00 [facility] [place] Height 2019-07-13 22:03:00 157.48 cm [facility] BMI Calculated 2019-07-13 22:03:00 [facility] [place] Weight 2019-07-13 22:03:00 [facility] Systolic (mm Hg) 2019-06-05 21:11:00 Jeramie rial Juan Diastolic (mm Hg) 2019-06-05 21:11:00 [facility] Heart Rate 2019-06-05 21:11:00 [facility] Temperature Oral (F) 2019-06-05 21:11:00 36.83 Felipa [facility] Respitory Rate 2019-06-05 21:11:00 [facility] Height 2019-06-05 21:11:00 157.5 cm [facility] [place] Weight 2019-06-05 21:11:00 [facility] Systolic (mm Hg) 2019-05-20 22:16:00 Jeramie [facility] [place] Diastolic (mm Hg) 2019-05-20 22:16:00 [facility] Heart Rate 2019-05-20 22:16:00 [facility] Temperature Oral (F) 2019-05-20 22:16:00 36.44 Felipa [facility] Respitory Rate 2019-05-20 22:16:00 [facility] Height 2019-05-20 22:16:00 157.5 cm [facility] Weight 2019-05-20 22:16:00 [facility] Systolic (mm Hg) 2019-05-03 16:01:00 Jeramie rial Juan Diastolic (mm Hg) 2019-05-03 16:01:00 [facility] [place] Heart Rate 2019-05-03 16:01:00 [facility] Temperature Oral (F) 2019-05-03 16:01:00 36.06 Felipa [facility] Respitory Rate 2019-05-03 16:01:00 [facility] Height 2019-05-03 16:01:00 157.5 cm [facility] Weight 2019-05-03 16:01:00 [facility] Procedures Procedure Date / Time Performed Performing Clinician Sourc e GC & CHLAMYDIA AMPLIFIED ASSAY 2019-06-06 02:52:00 Bell Rudolph [facility] GROUP B STREPTOCOCCUS BY PCR 2019-06-06 02:45:00 Bell Rudolph [facility] NO SHOW OR MISSED APPOINTMENT POLICY ACKNOWLEDGEMENT 2019-05 02:05:10 Doctor Unassigned, [place] [facility] CBC WITH DIFF 2019-05-21 04:33:00 Bell Rudolph [facility] HIV 1/2 AG-AB WITH REFLEX 2019-05-21 04:33:00 [facility] - SYPHILIS IGG/IGM 2019-05-21 04:33:00 Bell Rudolph [facility] TDAP (ADACEL) IMMUNIZATION 2019-05-03 21:48:17 [facility] PO[facility] URINALYSIS W/O SPECIFIC GRAVITY 2019-05-03 00:00:00 Bell Rudolph [place] Plan of Care Planned Activity Planned Date Details Comments Source Future Scheduled Test 2029-05-03 00:00:00 Plan of Care [code = 1877 6-5] [facility] Future Scheduled Test 2020-06-05 00:00:00 Plan of Care [code = 1877 6-5] [facility] Scheduled Test 2019-12-05 00:00:00 Plan of Care [code = 1877 6-5] [facility] Scheduled Test 2019-08-03 00:00:00 CBC WITH DIFF [code = 570 21-8] [facility] Scheduled Test 2019-06-05 22:11:08 Plan of Care [code = 1877 6-5] [facility] Scheduled Test 2019-05-26 00:00:00 Plan of Care [code = 1877 6-5] [facility] Scheduled Test 2019-05-20 23:38:48 Plan of Care [code = 1877 6-5] [facility] Scheduled Test 2019-05-03 17:03:22 Plan of Care [code = 1877 6-5] [facility] Scheduled Test 2018-11-25 00:00:00 Plan of Care [code = 1877 6-5] [facility] Scheduled Test 2014-11-25 00:00:00 Plan of Care [code = 1877 6-5] [facility] Scheduled Test 2009-11-25 00:00:00 Plan of Care [code = 1877 6-5] [facility] Encounters Start Date/Time End Date/Time Encounter Type Admission Type [facility] Department Encounter ID Source 2019-07-13 17:00:28 2019-07-16 12:30:00 Outpatient Marilu Peterson ra [facility] [id number] 2019-07-13 18:30:00 2019-07-13 17:00:00 Inpatient [facility] [id number] 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 [facility] & CHILD [facility] ..[id number] 2019-06-05 16:05:30 2019-06-05 17:11:08 Routine Visit Bell Rudolph [facility] [employer] ENGINEER [facility] & CHILD [facility] ..[id number] 2019-06-05 00:00:00 2019-06-05 00:00:00 Orders Only D octor Unassigned, [place] [facility] [id number] 2019-06-05 00:00:00 2019-06-05 00:00:00 Orders Only D octor Unassigned, [place] [facility] [id number] 2019-05-20 17:06:30 2019-05-20 18:38:48 [facility] CHILD [facility] [id number] 2019-05-20 17:06:30 2019-05-20 18:38:48 Routine Visit Blel Rudolph [facility]/GYN 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 CHILD [facility] [id number] 2019-02-25 14:49:00 2019-02-25 15:43:00 Departed Emergency Room [facility] [id number] [facility] 2018-12-08 14:11:00 2018-12-08 16:35:00 Departed Emergency Room [facility] [id number] [facility] 2018-03-13 00:00:00 2018-03-14 00:00:00 Outpatient [facility] [id number] [facility] Results Test Description Test Time Test Comments Results Result Comments Source HEMATOLOGY 2019-07-15 11:52:00 10.5 [facility] HEMATOLOGY 2019-07-15 11:52:00 30.4 [facility] [place] DRUG SCREEN 2019-07-14 00:49:00 Negative *NA*(07/13/19 7:4 9 PM) [facility] [place] DRUG SCREEN 2019-07-14 00:49:00 Negative *NA*(07/13/19 7:4 9 PM) [facility] DRUG SCREEN 2019-07-14 00:49:00 Negative *NA*(07/13/19 7:4 9 PM) [facility] DRUG SCREEN 2019-07-14 00:49:00 Negative *NA*(07/13/19 7:4 9 PM) [facility] DRUG SCREEN 2019-07-14 00:49:00 Negative *NA*(07/13/19 7:4 9 PM) [facility] DRUG SCREEN 2019-07-14 00:49:00 Negative *NA*(07/13/19 7:4 9 PM) [facility] DRUG SCREEN 2019-07-14 00:49:00 Negative *NA*(07/13/19 7:4 9 PM) [facility] DRUG SCREEN 2019-07-14 00:49:00 See Note (07/13/19 7:49 PM ) [facility] DRUG SCREEN 2019-07-14 00:49:00 Negative *NA*(07/13/19 7:4 9 PM) [facility] DRUG SCREEN 2019-07-14 00:49:00 Negative *NA*(07/13/19 7:4 9 PM) [facility] URINE AND STOOL 2019-07-14 00:49:00 Light Yellow *NA*(06/25 06/13 7:49 PM) [facility] URINE AND STOOL 2019-07-14 00:49:00 Clear (07/13/19 7:49 P M) [facility] URINE AND STOOL 2019-07-14 00:49:00 Test Item UA Spec Grav (test code = UA Spec Grav) 1.014 1 [facility] [id number] 00:49:00* Test Item Value Reference Range Interpretation Comments UA pH (test code = UA pH) 6.0 1 5.0-8.0 [facility] [id number] 00:49:00Negative *NA*(07/13/19 7:49 PM)[facility] [id number] 00:49:00Large *ABN*(07/13/19 7:49 PM)[facility] [id number] 00:49:00<1.0[facility] [id number] 00:49:00Negative (07/13/19 7:49 PM)[facility] [id number] 00:49:00Small *ABN*(07/13/19 7:49 PM)[facility] [id number] 00:49:0010[facility] [id number] 00:49:006 [facility] HermannBLOOD BANK [id number] 00:44:00Negative (07/13/19 7:44 PM) [facility] MovyauhAPCSXTDGFK4091-30-69 00:44:0011.3[facility]annHEMATOLOGY 2019-07-14 00:44:003.92[facility] FokhdcsQRWHURMJCR0341-04-86 00:44:0011.7[facility] AxeprbhYGQHKOQSDF1371-75-44 00:44:0034.8[facility] UnwliyaGJUIWNXLRB7244-83-64 00:44:0088.6[facility] NodcreuOVHRRJMWAA5818-75-54 00:44:00* Test Item Value Reference Range Interpretation Comments MCH (test code = MCH) 29.9 pg 27.0-31.0 [facility] TrcyipiKFRDCMMHQP6532-63-55 00:44:0033.7[facility] HermannHEMATOLOGY 2019-07-14 00:44:0013.3[facility] KqijotaTNYEUALCWV4361-49-79 00:44:80982Mjdlfnfv CgwzzowIUYRYUXCXN0090-44-26 00:44:008.1[facility] DkuectrIRDPYAMYDR5081-48-65 00:44:0075.9[facility] ZxibekqPUZIWNZBJE3835-19-43 00:44:0016.2[facility] IJSPNKVEGM8558-57-17 00:44:006.6[facility] YsgvmadPYWZHVFXVH5653-12-61 00:44:001.1 [facility] YwnjpvjARAKOWMXXT8136-68-74 00:44:000.2[facility] HermannHEMATOLOGY 2019-07-14 00:44:008.6[facility] IitrtxoUDBDUVMHLI4017-05-89 00:44:001.8[facility] DahpyrgTOUZRPEGLB0615-21-22 00:44:000.7[facility] JkeougwPAYKBSWNIW9245-49-27 00:44:000.1[facility] XxpwqnuERTEBWKXWC6924-04-96 00:44:00Non-Reactive *NA*(07/13/19 7:44 PM)[facility] DjsjpgyDBMPWBLKHP3986-15-89 00:44:00Negative *NA*(07/13/19 7:44 PM)[facility] IvezlxnJUFWNXYADH8162-28-47 00:44:00Negative *NA*(07/13/19 7:44 PM)[facility] HermannHIV 1/2 AG-AB WITH UMTLPI5760-17-40 03:20:000.07[facility]annCBC WITH DCRSBFJRCENB7097-33-45 02:33:009.18[facility]annCBC WITH DHLJOZWBUGWT6052-58-83 02:33:003.97[facility]annCBC WITH SMGAMXQKPCMA9644-73-46 02:33:0012.0[facility] HermannCBC WITH DIFFERENTIAL 2019-05-21 02:33:0036.3[facility]annCBC WITH FQENJVJUSRUU0905-33-87 02:33:00 91.4[facility] HermannCBC WITH TMDZNCATMDIZ3181-84-92 02:33:00* Test Item Value Reference Range Interpretation Comments <td ID="[id number]">MCH</t d><td>30.2</td><td>25.9 - 32.8 pg</td><td>[facility]</td><td ID="[id number]"/> (test code = <td ID="[id number]">MCH</td><td>30.2</td><td>25.9 - 32.8 pg</td><td>[facility]</td><td ID="[id number]"/>) 30.2 pg 25.9-32.8 [facility]ann[facility] WITH PEYPTPCOBZGH9631-32-87 02:33:0033.1[facility]annCBC WITH GIFDJAXBKFFZ3264-43-89 02:33:0040.7[facility]annCBC WITH DIFFERENTIAL 2019-05-21 02:33:0012.2[facility]annCBC WITH VEIIDKUCXKYH3211-34-10 02:33:00 249[facility] HermannCBC WITH LPTACVBLRDYK7538-77-25 02:33:0010.4[facility] CBC WITH XNPIIIDBBQMZ0791-68-88 02:33:005.2[facility] HermannCBC WITH DIFFERENTIAL 2019-05-21 02:33:000.0[facility] HermannCBC WITH XMWZHGUPLNUO6087-37-93 02:33:00 71.8[facility] HermannCBC WITH MPWORYSSYSPD9905-52-08 02:33:001.10[facility] CBC WITH HXBVQOCPPUAH6415-42-97 02:33:0017.5[facility] HermannCBC WITH YKKYBDSIIQMH3945-53-06 02:33:007.4[facility]annCBC WITH DIFFERENTIAL 2019-05-21 02:33:002.0[facility] HermannCBC WITH NTUMRAEGCETR8157-70-32 02:33:00 0.2[facility] HermannCBC WITH BZCNECCQAVNO7107-81-66 02:33:006.59[facility] CBC WITH AVIMZTHBZOUZ3331-54-03 02:33:000.10[facility] HermannCBC WITH ZUQTLODSWYIQ2676-53-80 02:33:001.61[facility]annCBC WITH DIFFERENTIAL 2019-05-21 02:33:000.68[facility] HermannCBC WITH KFAPXXVZJIBJ8908-46-01 02:33:00 0.18[facility] HermannPOCT URINALYSIS W/O SPECIFIC LHUKEUA6456-37-30 16:03:007 [facility] HermannPOCT URINALYSIS W/O SPECIFIC JTPBJVW8951-07-91 16:03:002[facility] HermannPOCT URINALYSIS W/O SPECIFIC [id number] 16:03:001[facility] Human Chorionic Gonadotropin, Kfzhc7046-05-45 15:39:00* Test Item Value Reference Range Interpretation Comments Human Chorionic Gonadotropin, Quant (test code = 60076-3) 085800.28 0-10 [facility], Quant 2018-12-08 15:39:00* Test Item Value Reference Range Interpretation Comments Human Chorionic Gonadotropin, Quant (test code = 02099-9) 838967.28 0-10 H [facility] Jgoyx3653-26-18 15:26:00* Test Item Value Reference Range Interpretation Comments Sodium Level (test code = 2951-2) 135 136-145 L [facility] Xhfev0140-76-39 15:26:00* Test Item Value Reference Range Interpretation Comments Potassium Level (test code = 2823-3) 3.6 3.5-5.1 [facility] Hospital[facility] [id number] 15:26:00* Test Item Value Reference Range Interpretation Comments Chloride Level (test code = 2075-0) 105 98-107 [facility] HospitalCarbon Dioxide [id number] 15:26:00* Test Item Value Reference Range Interpretation Comments Carbon Dioxide Level (test code = 2028-9) 21 22-29 L [facility] HospitalAnion [id number] 15:26:00* Test Item Value Reference Range Interpretation Comments Anion Gap (test code = 62034-7) 12.6 8-16 [facility] HospitalBlood Urea [id number] 15:26:00* Test Item Value Reference Range Interpretation Comments Blood Urea Nitrogen (test code = 3094-0) 7 7-26 [facility] HospitalCreatinine2019-03-16 15:26:00* Test Item Value Reference Range Interpretation Comments Creatinine (test code = 2160-0) 0.62 0.57-1.11 [facility]BUN/Creatinine [id number] 15:26:00* Test Item Value Reference Range Interpretation Comments BUN/Creatinine Ratio (test code = 3097-3) 11 6-25 [facility] HospitalEstimat Glomerular Filtration Rate 2018-12-08 15:26:00* Test Item Value Reference Range Interpretation Comments Estimat Glomerular Filtration Rate (test code = 905897391) > 60 >60 Ranges were taken from the National Kid[employer] Disease Education Program and the [facility] literature.Reference ranges:60 or greater: Rtukni46-40 ( for 3 consecutive months): Chronic kidney disease 15 or less: Kidney failureMethodist [facility]ty and Transplant HospitalGlucose Mqxpl9435-89-03 15:26:00* Test Item Value Reference Range Interpretation Comments Glucose Level (test code = AQG6645) 86 74-118 [facility] HospitalCalcium Ewmkt6812-21-79 15:26:00* Test Item Value Reference Range Interpretation Comments Calcium Level (test code = 17756-4) 8.5 8.4-10.2 [facility] HospitalTotal Hkkzdzkio3785-77-81 15:26:00* Test Item Value Reference Range Interpretation Comments Total Bilirubin (test code = 1975-2) 0.3 0.2-1.2 [facility] HospitalAspartate Amino Transf (AST/SGOT) 2018-12-08 15:26:00* Test Item Value Reference Range Interpretation Comments Aspartate Amino Transf (AST/SGOT) (test code = Aspartate Amino Transf (AST/SGOT)) 12 5-34 [facility] HospitalAlanine Aminotransferase (ALT/SGPT) 2018-12-08 15:26:00* Test Item Value Reference Range Interpretation Comments Alanine Aminotransferase (ALT/SGPT) (test code = 1742-6) 11 0-55 [facility] HospitalTotal Ybqwuqq4320-48-85 15:26:00* Test Item Value Reference Range Interpretation Comments Total Protein (test code = 2885-2) 6.9 6.5-8.1 [facility] HospitalAlbumin2019-03-16 15:26:00* Test Item Value Reference Range Interpretation Comments Albumin (test code = 1751-7) 3.7 3.5-5.0 [facility] HospitalGlobulin2019-03-16 15:26:00* Test Item Value Reference Range Interpretation Comments Globulin (test code = 14277-4) 3.2 2.3-3.5 [facility] HospitalAlbumin/Globulin Rdill1311-04-47 15:26:00 * Test Item Value Reference Range Interpretation Comments Albumin/Globulin Ratio (test code = 1759-0) 1.2 0.8-2.0 [facility] HospitalAlkaline Pooaftmmjmp1737-20-72 15:26:00* Test Item Value Reference Range Interpretation Comments Alkaline Phosphatase (test code = 6768-6) 43 40-150 [facility] HospitalLipase2019-03-16 15:26:00* Test Item Value Reference Range Interpretation Comments Lipase (test code = 3040-3) 19 8-78 [facility]odium Dvrff9289-53-74 15:26:00* Test Item Value Reference Range Interpretation Comments Sodium Level (test code = 2951-2) 135 136-145 L [facility] HospitalPotassium Uktty5521-54-29 15:26:00* Test Item Value Reference Range Interpretation Comments Potassium Level (test code = 2823-3) 3.6 3.5-5.1 [facility] HospitalChloride Vacqp6213-42-36 15:26:00* Test Item Value Reference Range Interpretation Comments Chloride Level (test code = 2075-0) 105 98-107 [facility] HospitalCarbon Dioxide Pxcsc4359-26-71 15:26:00* Test Item Value Reference Range Interpretation Comments Carbon Dioxide Level (test code = 2028-9) 21 22-29 L [facility] HospitalAnion Kwj1809-20-29 15:26:00* Test Item Value Reference Range Interpretation Comments Anion Gap (test code = 77879-1) 12.6 8-16 [facility] HospitalBlood Urea Rykpcnjc3113-18-57 15:26:00* Test Item Value Reference Range Interpretation Comments Blood Urea Nitrogen (test code = 3094-0) 7 7- [facility] HospitalCreatinine2019-03-16 15:26:00* Test Item Value Reference Range Interpretation Comments Creatinine (test code = 2160-0) 0.62 0.57-1.11 [facility] HospitalBUN/Creatinine Mldgu7503-57-00 15:26:00* Test Item Value Reference Range Interpretation Comments BUN/Creatinine Ratio (test code = 3097-3) 11 03-19 [facility] HospitalEstimat Glomerular Filtration Rate 2018-12-08 15:26:00* Test Item Value Reference Range Interpretation Comments Estimat Glomerular Filtration Rate (test code = 018152505) > 60 >60 Ranges were taken from the National Kidney Disease Education Program and the [facility] Kidney Foundation literature.Reference ranges:60 or greater: Vmjqma58-57 ( for 3 consecutive months): Chronic kidney disease 15 or less: Kidney failureMethodist Specialty and Transplant HospitalGlucose Gdnsc6646-87-12 15:26:00* Test Item Value Reference Range Interpretation Comments Glucose Level (test code = HYK1088) 86 74-118 [facility] HospitalCalcium Yefvd0128-61-86 15:26:00* Test Item Value Reference Range Interpretation Comments Calcium Level (test code = 37547-5) 8.5 8.4-10.2 [facility] HospitalTotal Srkxuehgx2970-49-22 15:26:00* Test Item Value Reference Range Interpretation Comments Total Bilirubin (test code = 1975-2) 0.3 0.2-1.2 [facility] HospitalAspartate Amino Transf (AST/SGOT) 2018-12-08 15:26:00* Test Item Value Reference Range Interpretation Comments Aspartate Amino Transf (AST/SGOT) (test code = Aspartate Amino Transf (AST/SGOT)) 12 34 [facility] HospitalAlanine Aminotransferase (ALT/SGPT) 2018-12-08 15:26:00* Test Item Value Reference Range Interpretation Comments Alanine Aminotransferase (ALT/SGPT) (test code = 1742-6) 11 0-55 [facility] HospitalTotal Upijqah1757-59-80 15:26:00* Test Item Value Reference Range Interpretation Comments Total Protein (test code = 2885-2) 6.9 6.5-8.1 [facility] HospitalAlbumin2019-03-16 15:26:00* Test Item Value Reference Range Interpretation Comments Albumin (test code = 1751-7) 3.7 3.5-5.0 [facility] HospitalGlobulin2019-03-16 15:26:00* Test Item Value Reference Range Interpretation Comments Globulin (test code = 93572-6) 3.2 2.3-3.5 [facility] HospitalAlbumin/Globulin Hkivz8645-81-37 15:26:00 * Test Item Value Reference Range Interpretation Comments Albumin/Globulin Ratio (test code = 1759-0) 1.2 0.8-2.0 [facility] HospitalAlkaline Vmhzwujhvjq6795-65-46 15:26:00* Test Item Value Reference Range Interpretation Comments Alkaline Phosphatase (test code = 6768-6) 43 40-150 [facility] HospitalLipase2019-03-16 15:26:00* Test Item Value Reference Range Interpretation Comments Lipase (test code = 3040-3) 19 8-78 [facility] HospitalUrine HBF6966-54-05 15:24:00* Test Item Value Reference Range Interpretation Comments Urine WBC (test code = 5821-4) 6-10 0-5 H [facility] HospitalUrine PMU6490-78-15 15:24:00* Test Item Value Reference Range Interpretation Comments Urine RBC (test code = 40361-4) 6-10 0-5 H [facility] HospitalUrine Igwsfluo2008-92-20 15:24:00* Test Item Value Reference Range Interpretation Comments Urine Bacteria (test code = 82266-6) FEW NONE [facility] HospitalUrine Epithelial Vkled0794-11-85 15:24:00 * Test Item Value Reference Range Interpretation Comments Urine Epithelial Cells (test code = 43694-1) MODERATE NONE [facility] HospitalUrine Amorphous Dmdumkhy4895-25-26 15:24:00* Test Item Value Reference Range Interpretation Comments Urine Amorphous Sediment (test code = 8246-1) MODERATE FEW H [facility] HospitalUrine AEQ3990-48-20 15:24:00* Test Item Value Reference Range Interpretation Comments Urine WBC (test code = 5821-4) 6-10 0-5 H [facility] HospitalUrine PJO8851-59-78 15:24:00* Test Item Value Reference Range Interpretation Comments Urine RBC (test code = 87065-7) 6-10 0-5 H [facility] Oxucmmfb6321-00-28 15:24:00* Test Item Value Reference Range Interpretation Comments Urine Bacteria (test code = 97823-2) FEW NONE [facility] Epithelial Njfkw6174-06-69 15:24:00 * Test Item Value Reference Range Interpretation Comments Urine Epithelial Cells (test code = 82894-1) MODERATE NONE [facility] Amorphous Evthjysu0333-23-83 15:24:00* Test Item Value Reference Range Interpretation Comments Urine Amorphous Sediment (test code = 8246-1) MODERATE FEW H [facility] HospitalUrine Fkmfh8680-96-73 15:11:00* Test Item Value Reference Range Interpretation Comments Urine Color (test code = 5778-6) YELLOW YELLOW [facility] HospitalUrine Sdepztx4784-85-24 15:11:00* Test Item Value Reference Range Interpretation Comments Urine Clarity (test code = 92202-3) HAZY CLEAR [facility] HospitalUrine Specific Gcikqlt7187-85-98 15:11:00 * Test Item Value Reference Range Interpretation Comments Urine Specific Groom (test code = 5811-5) 1.015 1.010-1.02 5 [facility] HospitalUrine kK3631-87-70 15:11:00* Test Item Value Reference Range Interpretation Comments Urine pH (test code = 38374-9) 7 5-7 [facility] HospitalUrine Leukocyte Abpncgkq8317-32-49 15:11:00* Test Item Value Reference Range Interpretation Comments Urine Leukocyte Esterase (test code = 5799-2) NEGATIVE NEGATIVE [facility] HospitalUrine Niylebq3335-58-07 15:11:00* Test Item Value Reference Range Interpretation Comments Urine Nitrite (test code = 25340-3) NEGATIVE NEGATIVE [facility] HospitalUrine Aaaizey2233-43-00 15:11:00* Test Item Value Reference Range Interpretation Comments Urine Protein (test code = 5804-0) NEGATIVE NEGATIVE [facility] HospitalUrine Glucose (UA)2018-12-08 15:11:00* Test Item Value Reference Range Interpretation Comments Urine Glucose (UA) (test code = 2349-9) NEGATIVE NEGATIVE [facility] HospitalUrine Pjmsmvu5061-17-52 15:11:00* Test Item Value Reference Range Interpretation Comments Urine Ketones (test code = 62227-0) NEGATIVE NEGATIVE [facility] HospitalUrine Cgubdnthttdb4981-65-18 15:11:00* Test Item Value Reference Range Interpretation Comments Urine Urobilinogen (test code = 26537-4) 0.2 0.2-1 [facility] HospitalUrine Ocjmhohia8728-09-10 15:11:00* Test Item Value Reference Range Interpretation Comments Urine Bilirubin (test code = 1978-6) NEGATIVE NEGATIVE [facility] HospitalUrine Rpgse3141-11-95 15:11:00* Test Item Value Reference Range Interpretation Comments Urine Blood (test code = 52047-4) NEGATIVE NEGATIVE [facility] HospitalUrine Qegmh5593-80-20 15:11:00* Test Item Value Reference Range Interpretation Comments Urine Color (test code = 5778-6) YELLOW YELLOW [facility] HospitalUrine Cvqegen3759-04-50 15:11:00* Test Item Value Reference Range Interpretation Comments Urine Clarity (test code = 10316-8) HAZY CLEAR [facility] HospitalUrine Specific Shieena1764-97-48 15:11:00 * Test Item Value Reference Range Interpretation Comments Urine Specific Groom (test code = 5811-5) 1.015 1.010-1.02 5 [facility] HospitalUrine bZ4012-42-32 15:11:00* Test Item Value Reference Range Interpretation Comments Urine pH (test code = 04167-7) 7 5-7 [facility] HospitalUrine Leukocyte Dodohdsa0288-05-61 15:11:00* Test Item Value Reference Range Interpretation Comments Urine Leukocyte Esterase (test code = 5799-2) NEGATIVE NEGATIVE [facility] HospitalUrine Dggxmhu5751-10-59 15:11:00* Test Item Value Reference Range Interpretation Comments Urine Nitrite (test code = 88334-0) NEGATIVE NEGATIVE [facility] HospitalUrine Gdntzub8287-68-00 15:11:00* Test Item Value Reference Range Interpretation Comments Urine Protein (test code = 5804-0) NEGATIVE NEGATIVE [facility] Glucose (UA)2018-12-08 15:11:00* Test Item Value Reference Range Interpretation Comments Urine Glucose (UA) (test code = 2349-9) NEGATIVE NEGATIVE [facility] HospitalUrine Mbibbmh2670-50-78 15:11:00* Test Item Value Reference Range Interpretation Comments Urine Ketones (test code = 70607-8) NEGATIVE NEGATIVE [facility] Jwwefoidsmxe8485-99-40 15:11:00* Test Item Value Reference Range Interpretation Comments Urine Urobilinogen (test code = 98160-0) 0.2 0.2-1 [facility] HospitalUrine Errvaigaw3058-82-64 15:11:00* Test Item Value Reference Range Interpretation Comments Urine Bilirubin (test code = 1978-6) NEGATIVE NEGATIVE [facility] HospitalUrine Yogbw9934-98-54 15:11:00* Test Item Value Reference Range Interpretation Comments Urine Blood (test code = 01257-7) NEGATIVE NEGATIVE [facility] HospitalWhite Blood Orljv2805-88-61 15:02:00* Test Item Value Reference Range Interpretation Comments White Blood Count (test code = 6690-2) 7.19 4.8-10.8 [facility] HospitalRed Blood Biciu4519-90-08 15:02:00* Test Item Value Reference Range Interpretation Comments Red Blood Count (test code = 789-8) 4.25 3.6-5.1 [facility] HospitalHemoglobin2019-03-16 15:02:00* Test Item Value Reference Range Interpretation Comments Hemoglobin (test code = 67500-5) 12.8 12.0-16.0 [facility] HospitalHematocrit2019-03-16 15:02:00* Test Item Value Reference Range Interpretation Comments Hematocrit (test code = 4544-3) 36.5 34.2-44.1 [facility] HospitalMean Corpuscular Nuhjvf0929-64-31 15:02:00* Test Item Value Reference Range Interpretation Comments Mean Corpuscular Volume (test code = 787-2) 85.9 81-99 [facility] HospitalMean Corpuscular Stkjpytjvh1353-68-47 15:02:00* Test Item Value Reference Range Interpretation Comments Mean Corpuscular Hemoglobin (test code = 785-6) 30.1 28-32 [facility] HospitalMean Corpuscular Hemoglobin Concent 2018-12-08 15:02:00* Test Item Value Reference Range Interpretation Comments Mean Corpuscular Hemoglobin Concent (test code = 786-4) 35.1 31-35 H [facility] HospitalRed Cell Distribution Pgvim1960-37-50 15:02:00* Test Item Value Reference Range Interpretation Comments Red Cell Distribution Width (test code = 20371-3) 11.9 11.7 -14.4 [facility] HospitalPlatelet Yojqg6576-45-97 15:02:00* Test Item Value Reference Range Interpretation Comments Platelet Count (test code = 777-3) 241 140-360 [facility] HospitalNeutrophils (%) (Auto)2018-12-08 15:02:00 * Test Item Value Reference Range Interpretation Comments Neutrophils (%) (Auto) (test code = 45680-8) 67.1 38.7-80.0 [facility] HospitalLymphocytes (%) (Auto)2018-12-08 15:02:00 * Test Item Value Reference Range Interpretation Comments Lymphocytes (%) (Auto) (test code = 736-9) 24.8 18.0-39.1 [facility] HospitalMonocytes (%) (Auto)2018-12-08 15:02:00* Test Item Value Reference Range Interpretation Comments Monocytes (%) (Auto) (test code = 5905-5) 6.8 4.4-11.3 [facility] HospitalEosinophils (%) (Auto)2018-12-08 15:02:00 * Test Item Value Reference Range Interpretation Comments Eosinophils (%) (Auto) (test code = 713-8) 0.6 0.0-6.0 [facility] HospitalBasophils (%) (Auto)2018-12-08 15:02:00* Test Item Value Reference Range Interpretation Comments Basophils (%) (Auto) (test code = 706-2) 0.6 0.0-1.0 [facility] HospitalIM GRANULOCYTES %2018-12-08 15:02:00* Test Item Value Reference Range Interpretation Comments IM GRANULOCYTES % (test code = IM GRANULOCYTES %) 0.1 0.0- 1.0 [facility] HospitalNeutrophils # (Auto)2018-12-08 15:02:00* Test Item Value Reference Range Interpretation Comments Neutrophils # (Auto) (test code = 751-8) 4.8 2.1-6.9 [facility] HospitalLymphocytes # (Auto)2018-12-08 15:02:00* Test Item Value Reference Range Interpretation Comments Lymphocytes # (Auto) (test code = 12305-4) 1.8 1.0-3.2 [facility] HospitalMonocytes # (Auto)2018-12-08 15:02:00* Test Item Value Reference Range Interpretation Comments Monocytes # (Auto) (test code = 742-7) 0.5 0.2-0.8 [facility] HospitalEosinophils # (Auto)2018-12-08 15:02:00* Test Item Value Reference Range Interpretation Comments Eosinophils # (Auto) (test code = 711-2) 0.0 0.0-0.4 [facility] HospitalBasophils # (Auto)2018-12-08 15:02:00* Test Item Value Reference Range Interpretation Comments Basophils # (Auto) (test code = 704-7) 0.0 0.0-0.1 [facility] HospitalAbsolute Immature Granulocyte (auto 2018-12-08 15:02:00* Test Item Value Reference Range Interpretation Comments Absolute Immature Granulocyte (auto (pierce t code = Absolute Immature Granulocyte (auto) 0.01 0-0.1 [facility] HospitalWhite Blood Jsgqh5531-40-09 15:02:00* Test Item Value Reference Range Interpretation Comments White Blood Count (test code = 6690-2) 7.19 4.8-10.8 [facility] HospitalRed Blood Zaken2012-95-63 15:02:00* Test Item Value Reference Range Interpretation Comments Red Blood Count (test code = 789-8) 4.25 3.6-5.1 [facility] HospitalHemoglobin2019-03-16 15:02:00* Test Item Value Reference Range Interpretation Comments Hemoglobin (test code = 49730-0) 12.8 12.0-16.0 [facility] HospitalHematocrit2019-03-16 15:02:00* Test Item Value Reference Range Interpretation Comments Hematocrit (test code = 4544-3) 36.5 34.2-44.1 [facility] HospitalMean Corpuscular Zorcnu8112-56-76 15:02:00* Test Item Value Reference Range Interpretation Comments Mean Corpuscular Volume (test code = 787-2) 85.9 81-99 [facility] HospitalMean Corpuscular Impuaoobvn0351-95-97 15:02:00* Test Item Value Reference Range Interpretation Comments Mean Corpuscular Hemoglobin (test code = 785-6) 30.1 28-32 [facility] Hemoglobin Concent 2018-12-08 15:02:00* Test Item Value Reference Range Interpretation Comments Mean Corpuscular Hemoglobin Concent (test code = 786-4) 35.1 31-35 H [facility] HospitalRed Cell Distribution Eaksh3579-82-23 15:02:00* Test Item Value Reference Range Interpretation Comments Red Cell Distribution Width (test code = 03810-1) 11.9 11.7 -14.4 [facility] HospitalPlatelet Fxbec3595-82-59 15:02:00* Test Item Value Reference Range Interpretation Comments Platelet Count (test code = 777-3) 241 140-360 [facility] HospitalNeutrophils (%) (Auto)2018-12-08 15:02:00 * Test Item Value Reference Range Interpretation Comments Neutrophils (%) (Auto) (test code = 83618-4) 67.1 38.7-80.0 [facility] HospitalLymphocytes (%) (Auto)2018-12-08 15:02:00 * Test Item Value Reference Range Interpretation Comments Lymphocytes (%) (Auto) (test code = 736-9) 24.8 18.0-39.1 [facility] HospitalMonocytes (%) (Auto)2018-12-08 15:02:00* Test Item Value Reference Range Interpretation Comments Monocytes (%) (Auto) (test code = 5905-5) 6.8 4.4-11.3 [facility] HospitalEosinophils (%) (Auto)2018-12-08 15:02:00 * Test Item Value Reference Range Interpretation Comments Eosinophils (%) (Auto) (test code = 713-8) 0.6 0.0-6.0 [facility] HospitalBasophils (%) (Auto)2018-12-08 15:02:00* Test Item Value Reference Range Interpretation Comments Basophils (%) (Auto) (test code = 706-2) 0.6 0.0-1.0 [facility] HospitalIM GRANULOCYTES %2018-12-08 15:02:00* Test Item Value Reference Range Interpretation Comments IM GRANULOCYTES % (test code = IM GRANULOCYTES %) 0.1 0.0- 1.0 [facility] HospitalNeutrophils # (Auto)2018-12-08 15:02:00* Test Item Value Reference Range Interpretation Comments Neutrophils # (Auto) (test code = 751-8) 4.8 2.1-6.9 [facility] HospitalLymphocytes # (Auto)2018-12-08 15:02:00* Test Item Value Reference Range Interpretation Comments Lymphocytes # (Auto) (test code = 48716-5) 1.8 1.0-3.2 [facility] HospitalMonocytes # (Auto)2018-12-08 15:02:00* Test Item Value Reference Range Interpretation Comments Monocytes # (Auto) (test code = 742-7) 0.5 0.2-0.8 [facility] HospitalEosinophils # (Auto)2018-12-08 15:02:00* Test Item Value Reference Range Interpretation Comments Eosinophils # (Auto) (test code = 711-2) 0.0 0.0-0.4 [facility] HospitalBasophils # (Auto)2018-12-08 15:02:00* Test Item Value Reference Range Interpretation Comments Basophils # (Auto) (test code = 704-7) 0.0 0.0-0.1 [facility] HospitalAbsolute Immature Granulocyte (auto 2018-12-08 15:02:00* Test Item Value Reference Range Interpretation Comments Absolute Immature Granulocyte (auto (pierce t code = Absolute Immature Granulocyte (auto) 0.01 0-0.1 [facility]
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
[2020-03-06] MEDS ORDERED: KETOROLAC TROMETHAMINE 60 MG/2 ML VIAL IM ONE (17:15)
--- NOTE | 2020-03-06 17:27 | Diagnostic Imaging Report ---
EXAM: THORACIC SP 3V, LUMBAR 3 VIEW DATE: 03/06/2020 5:01 PM INDICATION: ^back pain ^[id number] ^[id number] COMPARISON: None FINDINGS: Thoracic spine: Frontal and lateral views of the thoracic spine show 12 rib bearing thoracic vertebrae. Vertebral body heights appear maintained. Soft tissues unremarkable. There is very mild dextroscoliosis. Lumbar spine: Frontal and lateral views of the lumbar spine show 5 lumbar type vertebrae. Lumbar body heights and disc spaces are maintained. There is no spondylolisthesis. Soft tissues unremarkable. IMPRESSION: No acute bony abnormality. Signed by: Dr. Bhavesh Tobar M.D. on 03/06/2020 5:23 PM
== END 2020-03-06 18:16 | disposition home or self-care (01) ==
LOC: ER 15:49
DX: M54.6 Pain in thoracic spine (principal); M54.5 Low back pain; V89.2XXA Person injured in unspecified motor-vehicle accident, traffic, initial encounter; J45.909 Unspecified asthma, uncomplicated
CPT/HCPCS: 72072; 72100; 81025; 99282

== ENCOUNTER 2020-06-22 11:44 | Emergency (ER) | payer OTHER ==
[~2020-06-22] VITALS: Ht 160 cm; Wt 55.3 kg
--- NOTE | 2020-06-22 12:12 | Emergency Department Note ---
History of Present Illnes History of Present Illness Chief Complaint: Abdominal Complaints History of Present Illness This is a 19 year old female Chief Complaint Comment PATIENT IN FROM HOME WITH COMPLAINTS OF NAUSEA X 2 MONTHS, AND INTERMITTANT VOMITING X 3 WEEKS. PATIENT STATES NOTHING MAKES THE NAUSEA BETTER OR WORSE. PATIENT REPORTS POOR APPETITE. PATIENT DENIES PAIN, DENIES URINARY SYMPTOMS SUCH BURNING OR FREQUENCY, APPEARS IN NO DISTRESS, RESP EVEN AND NONLABORED, STATES LMP . Historian: Patient Arrival Mode: Car Onset (how long ago): month(s) Location: Generalized Quality: Nausea Radiation: Reports non-radiation Severity: mild Onset quality: unable to specify Duration (how long): month(s) Timing of current episode: intermittent Progression: unchanged Chronicity: chronic Context: Denies recent illness, Denies recent surgery Relieving factors: none Exacerbating factors: none Associated symptoms: Reports denies other symptoms Treatments prior to arrival: none Past Medical/Family History Physician Review I have reviewed the patient's past medical and family history. Any updates have been documented here. Past Medical History Recent Fever: No Clinical Suspicion of Infectio: No New/Unexplained Change in Ment: No Past Medical History: None, Asthma Past Surgical History: None Other Last Tetanus: UTD Review of Systems Review of Systems Constitutional: Reports no symptoms EENTM: Reports no symptoms Cardiovascular: Reports no symptoms Respiratory: Reports no symptoms Gastrointestinal: Reports as per HPI, Reports nausea, Reports vomiting; Denies abdominal pain Genitourinary: Reports no symptoms Musculoskeletal: Reports no symptoms Integumentary: Reports no symptoms Neurological: Reports no symptoms Psychological: Reports no symptoms Endocrine: Reports no symptoms Hematological/Lymphatic: Reports no symptoms Physical Exam Related Data Allergies: Coded Allergies: Penicillins (Verified Allergy, Unknown, 06/22/20) Triage Vital Signs Vital Signs Date Time Temp Pulse Resp B/P (MAP) Pulse Ox O2 Delivery O2 Flow Rate FiO2 06/22/20 11:53 98.8 89 20 126/87 100 Room Air Vital signs reviewed: Yes Physical Exam CONSTITUTIONAL Constitutional: Present well-developed, Present well-nourished HENT HENT: Present normocephalic, Present atraumatic, Present oropharynx cl ear/moist, Present nose normal HENT L/R: Present left ext ear normal, Present right ext ear normal EYES Eyes: Reports PERRL, Reports conjunctivae normal NECK Neck: Present ROM normal PULMONARY Pulmonary: Present effort normal, Present breath sounds normal CARDIOVASCULAR Cardiovascular: Present regular rhythm, Present heart sounds normal, Present capillary refill normal, Present normal rate GASTROINTESTINAL Abdominal: Present soft, Present nontender, Present bowel sounds normal GENITOURINARY Genitourinary: Present exam deferred SKIN Skin: Present warm, Present dry MUSCULOSKELETAL Musculoskeletal: Present ROM normal NEUROLOGICAL Neurological: Present alert, Present oriented x 3, Present no gross motor or sensory deficits PSYCHOLOGICAL Psychological: Present mood/affect normal, Present judgement normal Assessment & Plan Medical Decision Making MDM 19-year-old female presents for nausea for 2 months. She has been taking Phenergan at home with mild relief. Denies other symptoms this time. Initial differential includes urinary tract infection versus otherwise unexplained nausea and vomiting versus dehydration among others. Workup shows urinary tract infection and we'll treat as such with Keflex. Additionally we'll prescribe Zofran at home. Instructed her to follow up with her primary care doctor or return to emergency department for worsening symptoms. Patient's appropriate for discharge. Reassessment Reassessment time: 13:31 Reassessment Well appearing, NAD Assessment & Plan Final Impression: (1) UTI (urinary tract infection) (2) Nausea & vomiting Depart Disposition: HOME, SELF-CARE Last Vital Signs Date Time Temp Pulse Resp B/P (MAP) Pulse Ox O2 Delivery O2 Flow Rate FiO2 06/22/20 11:53 98.8 89 20 126/87 100 Room Air Medications in the ED Ondansetron HCl 4 mg ONCE ONCE PO ; Start 06/22/20 at 12:15; Stop 06/22/20 at 12:16 RAIMUNDO MONROY MD Jun 22, 2020 12:12
--- OUTSIDE RECORDS SUMMARY | 2020-06-22 12:14 | XMS REPORT | Continuity of Care Document ---
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 [facility] Herpes simplex type 2 infection (disorder) Resolved Problem 07/18/2019 [facility] Medications Medication Details Route Status Patient Instructions Ordering Provider Order Date Source Docusate Sodium 100 MG Oral Capsule 100 mg = 1 cap, PO, BID, PRN Constipation, # 60 cap, 1 Refill(s), Pharmacy: [facility]/pharmacy #[id number] Active 07/16/2019 [facility] ibuprofen 600 mg oral tablet 6 00 mg = 1 tab, PO, Q6H, # 30 tab, 0 Refill(s), Pharmacy: [facility]/pharmacy #[id number] Active 07/16/2019 [facility] CitraNatal [place] oral capsule 1 cap, PO, Daily, # 60 cap, 0 Refill(s), Pharmacy: [facility]/pharmacy #[id number] Active 07/16/2019 [facility] Multivitamins oral tablet 1 tab, Route: PO, Drug Form: TAB, Dosing Weight 71.818, kg, Daily, Start date: 07/15/19 9:00:00 CDT, Duration: 30 day, Stop date: 08/13/19 9:00:00 FIXED INCOME MANAGER, 0 No Longer Active 07/15/2019 [facility] Depo-Provera Notes: (Same as: Depo-Provera) This is NOT Depo-SubQ Provera 104 For IM use only MEDICATION WASTE Product Size: 150 mg Product Wasted: ___ mg No Longer Active 07/15/2019 [facility] nter M-M-R II Notes: (Same as: M-M- R II) (xtjznga-dovav-iyyrqdz virus vaccine 0.5 ml INJ VL) WASTE: F/P - Red; E -Red GIVE PRIOR TO DISCHARGE No Longer Active 07/14/2019 [facility] nter Ibuprofen Notes: (Same as: Mot rin) "Do Not Crush" Take with food. No Longer Active 07/14/2019 [facility] Oxytocin 30 unit, 500 mL, Rate : 42 ml/hr, Infuse over: 11.9 hr, Dosing Weight 71.818, kg, Route: IV, Total Volume: 500 mL, Start date: 07/14/19 10:23:00 CDT, Duration: 2 day, Stop date: 07/16/19 10:22:00 CDT, Replace Every: 11.9 hr, 0 No Longer Active 07/14/2019 [facility] nter Lactated Ringers IV 1,000 mL 1 ,000 mL, Rate: 100 ml/hr, Infuse over: 10 hr, Route: IV, Dosing Weight 71.818 kg, Total Volume: 1,000, Start date: 07/14/19 10:23:00 CDT, Duration: 30 day, Stop date: 08/13/19 10:22:00 FIXED INCOME MANAGER, 1.8, m2, 0 No Longer Active 07/14/2019 [facility] nter Ondansetron Notes: (Same as: Fady carrasco) MEDICATION WASTE Product Size: 4 mg Product Wasted: ___ mg No Longer Active 07/14/2019 [facility] Docusate Notes: (Same as: Cola ce) (Do Not Crush) No Longer Active 07/14/2019 [facility] Bisacodyl Notes: (Same As: Dul colax, Correctol) (Do Not Crush) "Do Not Crush" No Longer Active 07/14/2019 [facility] nter lanolin topical 1 appl, Route: TOP, PRN, Drug form: OINT, PRN Other -See Comment, Start date: 07/14/19 10:23:00 CDT, Duration: 30 day, Stop date: 08/13/19 9:22:00 FIXED INCOME MANAGER, 0 No Longer Active 07/14/2019 [facility] nter zolpidem Notes: (Same As: Ambi en) No Longer Active 07/14/2019 [facility] Dermoplast 20% topical spray N otes: (Same As: Dermoplast) WASTE: Aerosol - Return to Pharmacy FOR EXTERNAL USE ONLY No Longer Active 07/14/2019 [facility] Methylergonovine Notes: (Same as:Methergine) No Longer Active 07/14/2019 [facility] Famotidine Notes: (Same as: Pe pcid) Can be dilute in 5- 10cc NS IVP: Slow IV push over at least 2 minutes. No Longer Active 07/14/2019 [facility] Misoprostol Notes: (Same as:Cy totec) Take with food No Longer Active 07/14/2019 [facility] Methylergonovine Notes: (Same as:Methergine) No Longer Active 07/14/2019 [facility] Citric Acid / sodium citrate N otes: (Same As: Bicitra, Cytra-2) Sodium citrate-citric acid (500-334 mg/5 mL): 1 mL contains sodium 1 mEq/mL and bicarbonate 1 mEq/mL No Longer Active 07/14/2019 [facility] nter Carboprost Notes: (Same As: He mabate) No Longer Active 07/14/2019 [facility] Tranexamic Acid Notes: (Same A s: Cyklokapron) No Longer Active 07/14/2019 [facility] Oxytocin 30 unit, 500 mL, Rate : Titrate, Dosing Weight 71.818, kg, Route: IV, Total Volume: 500 mL, Start date: 07/13/19 18:36:00 CDT, Duration: 2 day, Stop date: 07/15/19 18:35:00 CDT, Replace Every: 24 hr, 0 No Longer Active 07/13/2019 [facility] Lidocaine Hydrochloride 10 MG/ML Injectable Solution Notes: Preservative free. (Same as: Xylocaine MPF) No Longer Active 07/13/2019 [facility] Calcium Chloride 0.0014 MEQ/ML / Potassi um Chloride 0.004 MEQ/ML / Sodium Chloride 0.103 MEQ/ML / Sodium Lactate 0.028 MEQ/ML Injectable Solution 1,000 mL, 1,000 ml/hr, Infuse Over: 1 hr , Route: IV, 1,000, Drug form: INJ, ONCE, Dosing Weight 71.818 kg, Start date: 07/13/19 18:34:00 CDT, Stop date: 07/13/19 18:34:00 CDT, Bolus for regional anesthesia per unit routine, 0 Inactive 07/13/2019 [facility] Lactated Ringers IV 1,000 mL 1 ,000 mL, Rate: 125 ml/hr, Infuse over: 8 hr, Route: IV, Dosing Weight 71.818 kg, Total Volume: 1,000, Start date: 07/13/19 18:34:00 CDT, Duration: 30 day, Stop date: 08/12/19 18:33:00 FIXED INCOME MANAGER, 1.8, m2, 0 No Longer Active 07/13/2019 [facility] nter Oxytocin 30 unit, 500 mL, Rate : 42 ml/hr, Infuse over: 11.9 hr, Dosing Weight 71.818, kg, Route: IV, Total Volume: 500 mL, Start date: 07/13/19 18:34:00 CDT, Duration: 2 day, Stop date: 07/15/19 18:33:00 CDT, Replace Every: 11.9 hr, 0 No Longer Active 07/13/2019 [facility] nter Butorphanol Notes: (Same As: Arturo tadol) MEDICATION WASTE Product Size: 2 mg Product Wasted: ___ mg No Longer Active 07/13/2019 [facility] Ibuprofen Notes: (Same as: Mot rin) "Do Not Crush" Take with food. No Longer Active 07/13/2019 [facility] Acetaminophen 325 MG / Hydrocodone Earl trate 5 MG Oral Tablet Notes: (Same as: [place] 325/5) Do not ex ceed 4gm/day of acetaminophen. No Longer Active 07/13/2019 [facility] Ondansetron Notes: (Same as: Fady carrasco) MEDICATION WASTE Product Size: 4 mg Product Wasted: ___ mg No Longer Active 07/13/2019 [facility] Terbutaline Notes: DO NOT US E IN LATHE TENDER AREA (Same As: Georgianathine) No Longer Active 07/13/2019 [facility] Allergies, Adverse Reactions, Alerts Substance Category Reaction Severity Reaction type Status Date Reported Comments Source penicillins Assertion Drug allergy Active [facility] Immunizations Immunization Date Given Site Status Last Updated Comments Source influenza virus vaccine, inactivated 07/16/2019 Right deltoid completed Pramod [facility] Results Order Name Results Value Reference Range Date Interpretation Comments Source HEMATOLOGY Hgb 10.5 12.0 - 16.0 07/15/2019 [facility] HEMATOLOGY Hct 30.4 36.0 - 48.0 07/15/2019 [facility] DRUG SCREEN U Amph Scr Nega tive *NA* (07/13/19 7:49 PM) Negative 07/14/2019 [facility] DRUG SCREEN U Kaycee Scr Nega tive *NA* (07/13/19 7:49 PM) Negative 07/14/2019 [facility] DRUG SCREEN U Benzodiaz Scr Nega tive *NA* (07/13/19 7:49 PM) Negative 07/14/2019 [facility] DRUG SCREEN U Cocaine Scr Nega tive *NA* (07/13/19 7:49 PM) Negative 07/14/2019 [facility] DRUG SCREEN U Cannab Scr Nega tive *NA* (07/13/19 7:49 PM) Negative 07/14/2019 [facility] DRUG SCREEN U Opiate Scr Nega tive *NA* (07/13/19 7:49 PM) Negative 07/14/2019 [facility] DRUG SCREEN U Phencyclidine Scr Nega tive *NA* (07/13/19 7:49 PM) Negative 07/14/2019 [facility] DRUG SCREEN UDS Note See Note (07/13/19 7:49 PM) 07/14/2019 [facility] DRUG SCREEN U Methadone Scr Nega tive *NA* (07/13/19 7:49 PM) Negative 07/14/2019 [facility] DRUG SCREEN U Propoxyph Scr Nega tive *NA* (07/13/19 7:49 PM) Negative 07/14/2019 [facility] URINE AND STOOL UA Color Light Yellow *NA* (07/13/19 7:49 PM) Yellow 07/14/2019 [facility] URINE AND STOOL UA Turbidity Clear (07/13/19 7:49 PM) Clear 07/14/2019 [facility] URINE AND STOOL UA Spec Grav 1.014 <=1.030 07/14/2019 [facility] URINE AND STOOL UA pH 6.0 5.0 - 8.0 07/14/2019 [facility] URINE AND STOOL UA Protein Negative mg/dL Negative mg/dL 07/14/2019 [facility] URINE AND STOOL UA Glucose Negative mg/dL Negative mg/dL 07/14/2019 [facility] URINE AND STOOL UA Ketones 20 mg/dL Negative mg/dL 07/14/2019 [facility] URINE AND STOOL UA Bili Negative *NA* (07/13/19 7:49 PM) Negative 07/14/2019 [facility] URINE AND STOOL UA Blood Large *ABN* (07/13/19 7:49 PM) Negative 07/14/2019 [facility] URINE AND STOOL UA Urobilinogen <1.0 0.1 - 1.0 07/14/2019 [facility] URINE AND STOOL UA Nitrite Negative (07/13/19 7:49 PM) Negative 07/14/2019 [facility] URINE AND STOOL UA Leuk Est Small *ABN* (07/13/19 7:49 PM) Negative 07/14/2019 [facility] URINE AND STOOL UA Sq Epi Few /LPF Few /LPF 07/14/2019 [facility] URINE AND STOOL UA WBC 10 0 - 5 07/14/2019 [facility] URINE AND STOOL UA RBC 6 0 - 2 07/14/2019 [facility] URINE AND STOOL UA Bacteria Occasional /HPF None Seen /HPF 07/14/2019 [facility] URINE AND STOOL UA Mucus Few /LPF None Seen /LPF 07/14/2019 [facility] BLOOD BANK RESULTS ABO/Rh O POS 07/14/2019 [facility] BLOOD BANK RESULTS Antibody Scrn Negative (07/13/19 7:44 PM) 07/14/2019 [facility] HEMATOLOGY WBC 11.3 3.7 - 10.4 07/14/2019 [facility] HEMATOLOGY RBC 3.92 4.20 - 5.40 07/14/2019 [facility] HEMATOLOGY Hgb 11.7 12.0 - 16.0 07/14/2019 [facility] HEMATOLOGY Hct 34.8 36.0 - 48.0 07/14/2019 [facility] HEMATOLOGY MCV 88.6 80.0 - 98.0 07/14/2019 [facility] HEMATOLOGY MCH 29.9 27.0 - 31.0 07/14/2019 [facility] HEMATOLOGY MCHC 33.7 32.0 - 36.0 07/14/2019 [facility] HEMATOLOGY RDW 13.3 11.5 - 14.5 07/14/2019 [facility] HEMATOLOGY Platelet 245 133 - 450 07/14/2019 [facility] HEMATOLOGY MPV 8.1 7.4 - 10.4 07/14/2019 [facility] HEMATOLOGY Segs 75.9 45.0 - 75.0 07/14/2019 [facility] HEMATOLOGY Lymphocytes 16.2 20.0 - 40.0 07/14/2019 [facility] HEMATOLOGY Monocytes 6.6 2.0 - 12.0 07/14/2019 [facility] HEMATOLOGY Eosinophils 1.1 0.0 - 4.0 07/14/2019 [facility] HEMATOLOGY Basophils 0.2 0.0 - 1.0 07/14/2019 [facility] HEMATOLOGY Neutrophils # 8.6 1.5 - 8.1 07/14/2019 [facility] HEMATOLOGY Lymphocytes # 1.8 1.0 - 5.5 07/14/2019 [facility] HEMATOLOGY Monocytes # 0.7 0.0 - 0.8 07/14/2019 [facility] HEMATOLOGY Eosinophils # 0.1 0.0 - 0.5 07/14/2019 [facility] IMMUNOLOGY Treponemal Ab Non-R eactive *NA* (07/13/19 7:44 PM) Non 07/14/2019 [facility] IMMUNOLOGY Hep Bs Ag Negat rex *NA* (07/13/19 7:44 PM) Negative 07/14/2019 [facility] IMMUNOLOGY HIV. Negat rex *NA* (07/13/19 7:44 PM) Negative 07/14/2019 [facility] Pathology Reports No Data Provided for This Section Diagnostic Reports No Data Provided for This Section Consultation Notes No Data Provided for This Section Discharge Summaries No Data Provided for This Section History and Physicals No Data Provided for This Section Vital Signs Vital Sign Value Date Comments Source Temperature Oral (F) 97.7 F 07/16/2019 [facility] Heart Rate 71 07/16/2019 [facility] Respitory Rate 18 07/16/2019 [facility] Systolic (mm Hg) 103 07/16/2019 [facility] Diastolic (mm Hg) 62 07/16/2019 [facility] Temperature Oral (F) 97.9 F 07/16/2019 [facility] Heart Rate 80 07/16/2019 [facility] Respitory Rate 18 07/16/2019 [facility] Systolic (mm Hg) 111 07/16/2019 [facility] Diastolic (mm Hg) 69 07/16/2019 [facility] Temperature Oral (F) 98.4 F 07/15/2019 [facility] Heart Rate 80 07/15/2019 [facility] Respitory Rate 18 07/15/2019 [facility] Systolic (mm Hg) 107 07/15/2019 [facility] Diastolic (mm Hg) 68 07/15/2019 [facility] Height 157.48 cm 07/14/2019 [facility] Weight 71.818 07/14/2019 [facility] BMI Calculated 28.96 07/14/2019 [facility] Height 157.48 cm 07/13/2019 [facility] BMI Calculated 28.96 07/13/2019 [facility] Weight 71.818 07/13/2019 [facility] Encounters Location Location Details Encounter Type Encounter Number Reason For Visit Attending Provider ADM Date DC Date Status Source [facility] Inpatient [id number] Bridgett Peterson 07/13/2019 07/16/2019 [facility] Procedures No Data Provided for This Section Assessment and Plan Assessment and Plan Date Source Extracted from:Title: Progres s Note Author: Grant German MD Date: 07/16/19 R1 [employer] Progress Note S: Pt is feeling well [...] / mod variability /+ accels /- decels Joseph: q3-5m BSUS: C, post, DVP 4.2cm, EFW [...] negative speculum examination. All questions answered. 07/16/2019 [facility] Plan of Care No Data Provided for This Section Social History Social History Date Source Social History TypeResponse Alcohol Past, Type Wine. Substance Abuse Use: Past. Type: Marijuana. Smoking Status Former smoker; Type: marijuana; Exposure to Tobacco Smoke None; Cigarette Smoking Last 365 Days No; Reg Smoking Cessation Counseling No entered on: 07/13/19 07/14/2019 [facility] Family History No Data Provided for This Section Advance Directives No Data Provided for This Section Functional Status No Data Provided for This Section
[2020-06-22] MEDS ORDERED: ONDANSETRON HCL 4 MG ORAL DISINTEGRATING TAB PO ONE (12:15)
--- OUTSIDE RECORDS SUMMARY | 2020-06-22 12:15 | XMS REPORT | Continuity of Care Document ---
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 15:11:00* Test Item Value Reference Range Interpretation Comments Urine Ketones (test code = 00373-6) NEGATIVE NEGATIVE [facility] Bkfagzvzrepg8026-46-52 15:11:00* Test Item Value Reference Range Interpretation Comments Urine Urobilinogen (test code = 92199-8) 0.2 0.2-1 [facility] Bbjygmpdh5331-35-06 15:11:00* Test Item Value Reference Range Interpretation Comments Urine Bilirubin (test code = 1978-6) NEGATIVE NEGATIVE [facility] Elbkj0508-41-26 15:11:00* Test Item Value Reference Range Interpretation Comments Urine Blood (test code = 15363-6) NEGATIVE NEGATIVE [facility] Onmfp2849-71-42 15:11:00* Test Item Value Reference Range Interpretation Comments Urine Color (test code = 5778-6) YELLOW YELLOW [facility] Rotnonl7710-67-93 15:11:00* Test Item Value Reference Range Interpretation Comments Urine Clarity (test code = 81843-1) HAZY CLEAR [facility] Specific Diqprbs4323-58-41 15:11:00 * Test Item Value Reference Range Interpretation Comments Urine Specific [place] (test code = 5811-5) 1.015 1.010-1.02 5 [facility] [id number] 15:11:00* Test Item Value Reference Range Interpretation Comments Urine pH (test code = 28376-7) 7 5-7 [facility] Leukocyte Qdxhxybl2972-89-41 15:11:00* Test Item Value Reference Range Interpretation Comments Urine Leukocyte Esterase (test code = 5799-2) NEGATIVE NEGATIVE [facility] Bxmflhb0560-77-17 15:11:00* Test Item Value Reference Range Interpretation Comments Urine Nitrite (test code = 86167-2) NEGATIVE NEGATIVE [facility] Rhewffq0432-99-74 15:11:00* Test Item Value Reference Range Interpretation Comments Urine Protein (test code = 5804-0) NEGATIVE NEGATIVE [facility] Glucose (UA)2018-12-08 15:11:00* Test Item Value Reference Range Interpretation Comments Urine Glucose (UA) (test code = 2349-9) NEGATIVE NEGATIVE [facility] Yrjlkkc4937-05-11 15:11:00* Test Item Value Reference Range Interpretation Comments Urine Ketones (test code = 20472-4) NEGATIVE NEGATIVE [facility] Oxrmaycstnej8499-62-70 15:11:00* Test Item Value Reference Range Interpretation Comments Urine Urobilinogen (test code = 54408-2) 0.2 0.2-1 [facility] Oxkhzgiwg1163-85-55 15:11:00* Test Item Value Reference Range Interpretation Comments Urine Bilirubin (test code = 1978-6) NEGATIVE NEGATIVE [facility] Uvwuh7552-61-24 15:11:00* Test Item Value Reference Range Interpretation Comments Urine Blood (test code = 43896-0) NEGATIVE NEGATIVE [facility] Cpgjl1179-44-77 15:02:00* Test Item Value Reference Range Interpretation Comments White Blood Count (test code = 6690-2) 7.19 4.8-10.8 [facility] Yeifd2570-06-98 15:02:00* Test Item Value Reference Range Interpretation Comments Red Blood Count (test code = 789-8) 4.25 3.6-5.1 [facility]2019-03-16 15:02:00* Test Item Value Reference Range Interpretation Comments Hemoglobin (test code = 19232-7) 12.8 12.0-16.0 [facility]ematocrit2019-03-16 15:02:00* Test Item Value Reference Range Interpretation Comments Hematocrit (test code = 4544-3) 36.5 34.2-44.1 [facility] Corpuscular Vhuuwf9596-55-71 15:02:00* Test Item Value Reference Range Interpretation Comments Mean Corpuscular Volume (test code = 787-2) 85.9 81-99 [facility] Corpuscular Pvxpkildzs2101-50-67 15:02:00* Test Item Value Reference Range Interpretation Comments Mean Corpuscular Hemoglobin (test code = 785-6) 30.1 28-32 [facility] Corpuscular Hemoglobin Concent 2018-12-08 15:02:00* Test Item Value Reference Range Interpretation Comments Mean Corpuscular Hemoglobin Concent (test code = 786-4) 35.1 31-35 H [facility] Distribution Mgzxo9993-00-89 15:02:00* Test Item Value Reference Range Interpretation Comments Red Cell Distribution Width (test code = 54791-1) 11.9 11.7 -14.4 [facility] Wxcfu9102-11-60 15:02:00* Test Item Value Reference Range Interpretation Comments Platelet Count (test code = 777-3) 241 140-360 [facility] (%) (Auto)2018-12-08 15:02:00 * Test Item Value Reference Range Interpretation Comments Neutrophils (%) (Auto) (test code = 43603-6) 67.1 38.7-80.0 [facility]ymph[facility] (%) (Auto)2018-12-08 15:02:00 * Test Item Value Reference Range Interpretation Comments Lymphocytes (%) (Auto) (test code = 736-9) 24.8 18.0-39.1 [facility] (%) (Auto)2018-12-08 15:02:00* Test Item Value Reference Range Interpretation Comments Monocytes (%) (Auto) (test code = 5905-5) 6.8 4.4-11.3 [facility] (%) (Auto)2018-12-08 15:02:00 * Test Item Value Reference Range Interpretation Comments Eosinophils (%) (Auto) (test code = 713-8) 0.6 0.0-6.0 [facility] (%) (Auto)2018-12-08 15:02:00* Test Item Value Reference Range Interpretation Comments Basophils (%) (Auto) (test code = 706-2) 0.6 0.0-1.0 [facility]ULOC[facility]TES %2018-12-08 15:02:00* Test Item Value Reference Range Interpretation Comments IM GRANULOCYTES % (test code = IM GRANULOCYTES %) 0.1 0.0- 1.0 [facility]Ne[facility]roph[facility] # (Auto)2018-12-08 15:02:00* Test Item Value Reference Range Interpretation Comments Neutrophils # (Auto) (test code = 751-8) 4.8 2.1-6.9 [facility] # (Auto)2018-12-08 15:02:00* Test Item Value Reference Range Interpretation Comments Lymphocytes # (Auto) (test code = 42846-1) 1.8 1.0-3.2 [facility] # (Auto)2018-12-08 15:02:00* Test Item Value Reference Range Interpretation Comments Monocytes # (Auto) (test code = 742-7) 0.5 0.2-0.8 [facility] # (Auto)2018-12-08 15:02:00* Test Item Value Reference Range Interpretation Comments Eosinophils # (Auto) (test code = 711-2) 0.0 0.0-0.4 [facility] # (Auto)2018-12-08 15:02:00* Test Item Value Reference Range Interpretation Comments Basophils # (Auto) (test code = 704-7) 0.0 0.0-0.1 [facility] Immature Granulocyte (auto 2018-12-08 15:02:00* Test Item Value Reference Range Interpretation Comments Absolute Immature Granulocyte (auto (pierce t code = Absolute Immature Granulocyte (auto) 0.01 0-0.1 [facility]White Blood Ctats3746-37-92 15:02:00* Test Item Value Reference Range Interpretation Comments White Blood Count (test code = 6690-2) 7.19 4.8-10.8 [facility] Rnkly9795-90-38 15:02:00* Test Item Value Reference Range Interpretation Comments Red Blood Count (test code = 789-8) 4.25 3.6-5.1 [facility]2019-03-16 15:02:00* Test Item Value Reference Range Interpretation Comments Hemoglobin (test code = 00477-8) 12.8 12.0-16.0 [facility]ematocrit2019-03-16 15:02:00* Test Item Value Reference Range Interpretation Comments Hematocrit (test code = 4544-3) 36.5 34.2-44.1 [facility] Corpuscular Ruzztl6202-25-81 15:02:00* Test Item Value Reference Range Interpretation Comments Mean Corpuscular Volume (test code = 787-2) 85.9 81-99 [facility] Corpuscular Anqmqbauzu1702-47-05 15:02:00* Test Item Value Reference Range Interpretation Comments Mean Corpuscular Hemoglobin (test code = 785-6) 30.1 28-32 [facility] Corpuscular Hemoglobin Concent 2018-12-08 15:02:00* Test Item Value Reference Range Interpretation Comments Mean Corpuscular Hemoglobin Concent (test code = 786-4) 35.1 31-35 H [facility]Red Cell Distribution Asoof8003-88-92 15:02:00* Test Item Value Reference Range Interpretation Comments Red Cell Distribution Width (test code = 57916-2) 11.9 11.7 -14.4 [facility]Pl[facility] Bzzju0968-04-38 15:02:00* Test Item Value Reference Range Interpretation Comments Platelet Count (test code = 777-3) 241 140-360 [facility]Ne[facility]rophils (%) (Auto)2018-12-08 15:02:00 * Test Item Value Reference Range Interpretation Comments Neutrophils (%) (Auto) (test code = 11685-8) 67.1 38.7-80.0 [facility]Lymphocytes (%) (Auto)2018-12-08 15:02:00 * Test Item Value Reference Range Interpretation Comments Lymphocytes (%) (Auto) (test code = 736-9) 24.8 18.0-39.1 [facility] (%) (Auto)2018-12-08 15:02:00* Test Item Value Reference Range Interpretation Comments Monocytes (%) (Auto) (test code = 5905-5) 6.8 4.4-11.3 [facility] (%) (Auto)2018-12-08 15:02:00 * Test Item Value Reference Range Interpretation Comments Eosinophils (%) (Auto) (test code = 713-8) 0.6 0.0-6.0 [facility] (%) (Auto)2018-12-08 15:02:00* Test Item Value Reference Range Interpretation Comments Basophils (%) (Auto) (test code = 706-2) 0.6 0.0-1.0 [facility]entonIM GRANULOCYTES %2018-12-08 15:02:00* Test Item Value Reference Range Interpretation Comments IM GRANULOCYTES % (test code = IM GRANULOCYTES %) 0.1 0.0- 1.0 [facility]Ne[facility]rophils # (Auto)2018-12-08 15:02:00* Test Item Value Reference Range Interpretation Comments Neutrophils # (Auto) (test code = 751-8) 4.8 2.1-6.9 [facility] # (Auto)2018-12-08 15:02:00* Test Item Value Reference Range Interpretation Comments Lymphocytes # (Auto) (test code = 28652-1) 1.8 1.0-3.2 [facility] # (Auto)2018-12-08 15:02:00* Test Item Value Reference Range Interpretation Comments Monocytes # (Auto) (test code = 742-7) 0.5 0.2-0.8 [facility] # (Auto)2018-12-08 15:02:00* Test Item Value Reference Range Interpretation Comments Eosinophils # (Auto) (test code = 711-2) 0.0 0.0-0.4 [facility] # (Auto)2018-12-08 15:02:00* Test Item Value Reference Range Interpretation Comments Basophils # (Auto) (test code = 704-7) 0.0 0.0-0.1 [facility]Absolute Immature Granulocyte (auto 2018-12-08 15:02:00* Test Item Value Reference Range Interpretation Comments Absolute Immature Granulocyte (auto (pierce t code = Absolute Immature Granulocyte (auto) 0.01 0-0.1 [facility]
[2020-06-22 12:42] LABS: COLOR,URINE YELLOW (YELLOW)
[2020-06-22 12:43] LABS: BILIRUBIN,URINE NEGATIVE (NEGATIVE); CLARITY,URINE CLEAR (CLEAR); KETONES,URINE NEGATIVE (NEGATIVE); LEUKOCYTE ESTERASE ,URINE SMALL (NEGATIVE); NITRITE,URINE NEGATIVE (NEGATIVE); PREGNANCY TEST, URINE NEGATIVE (NEGATIVE); PROTEIN,URINE DIPSTICK NEGATIVE (NEGATIVE); URINE UROBILINOGEN 0.2 mg/dL (0.2 - 1)
[2020-06-22 12:51] LABS: BACTERIA,URINE MANY /HPF; EPITHELIAL CELLS,URINE MODERATE /LPF; RBC,URINE 0-5 /HPF (0-5); WBC,URINE (MAN) 21-50 /HPF (0-5)
[2020-06-22 14:15] VITALS: BP 119/66
== END 2020-06-22 14:15 | disposition home or self-care (01) ==
LOC: ER 12:00
DX: N39.0 Urinary tract infection, site not specified (principal); R11.2 Nausea with vomiting, unspecified; R10.84 Generalized abdominal pain
CPT/HCPCS: 81001; 81025; 99283; Q0162